=== PATIENT | male | born 2005 | race African-American/Black ===

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

== ENCOUNTER 2024-06-12 14:26 | Observation (INO) | payer MEDICAID, SELFPAY ==
[2024-06-12] VITALS (22 sets, daily range): BP systolic 111–149; BP diastolic 51–73; PULSE 56–99; RESP 12–21; TEMP 36.9–37.1; O2SAT 96–100; BMI 25.5; BMI 23.0
--- NOTE | 2024-06-12 15:30 | ED_ITS ---
Discharge Plan Disposition Patient Disposition: Admitted Chief Complaint: Hyper/Hypoglycemia Prescriptions Prescriptions: No Action Tresiba FlexTouch U-100 100 unit/mL (3 mL) insulin pen 36 unit SQ DAILY Rx Instructions: FOR INSULIN PUMP MALFUNCTION insulin lispro 100 unit/mL insulin pen 0 unit SQ DIRECTED Rx Instructions: PER SLIDING SCALE Referrals Follow up/Referrals: Keiko Munroe PA [Primary Care Provider] - See instructions Clinical Impressions Clinical Impression: DKA (diabetic ketoacidosis) Instructions Patient Instructions: DI for Hyperglycemia -- Adult Print Language Print Language: Greek Discharge ED Provider: Ramana Craig General Adult HPI General Chief complaint: Hyper/Hypoglycemia Stated complaint: high glucose Time Seen by Provider: 06/12/24 14:58 Mode of Arrival: Ambulatory Source of Information: Patient Limitations: No Limitations Description of Symptoms (Recalled from ER Triage Doc. by RN): c/o high glucose in the 400s in his family doctor office, pt reports that he was seeing the pcp for vomiting, he was exposed by a friend who had the stomach bug, states his went home after the pcp office visit and took 15 units of his short acting insulin prior to arrival. History of Present Illness HPI narrative: Patient is a 19-year-old with past medical history of type 1 insulin-dependent diabetes presents emerged part for elevated sugar. Patient has been vomiting over the last 24 hours, is still making urine and he had positive sick contact with a friend that has a stomach bug . He took 16 units of his insulin he went to his PCP where his sugar was in the 500s shortly after administration of set insulin they referred him here for possible DKA rule out. Really no significant abdominal pain. No other acute complaints at this time. Related Data Home Medications ?Medication ?Instructions ?Recorded ?Confirmed insulin lispro 100 unit/mL 0 unit SQ DIRECTED 08/13/19 06/12/24 subcutaneous pen insulin degludec 100 unit/mL (3 36 unit SQ DAILY 07/10/20 06/12/24 mL) subcutaneous pen (Tresiba FlexTouch U-100 insulin) Allergies Allergy/AdvReac Type Severity Reaction Status Date / Time No Known Allergies Allergy Verified 06/12/24 13:42 [facility] Disclaimer: The information contained in this section may have been updated after the patient was seen, as this information can be updated by other users. Medical History Type 1 diabetes Social History Smoking Status: Never smoker alcohol intake: never substance use type: denies use current occupational status: student Travel in the last 8 weeks: None Have you lived/traveled outside [place] in past 30 days?: No Contact w/someone who lives/traveled outside US past 30 days?: No Exposure to someone with infectious disease in past 14 days?: No Do you have a fever (greater than 100.4 F or 38 C)?: No Have you tested positive for COVID-19: No Exposed to someone with COVID-19 in past 14 days?: No Do you have a sore throat?: No Do you have a cough?: No Do you have any weakness?: No Do you have any diarrhea?: No Are you experiencing any unusual bleeding?: No Do you have any muscle aches/pain?: No Do you have any abdominal pain?: No Are you experiencing loss of taste or smell?: No Other Medical History Have you received the Flu Vaccine for this season: No Have you received the Pneumonia Vaccine: No ROS Obtained: Yes Systems reviewed as appropriate & no additional complaints except as documented Physical Exam General General appearance: alert and in no apparent distress Head Head exam: atraumatic and normocephalic Eye Eye exam: Present PERRL ENT ENT exam: Present mucous membranes moist Neck Neck exam: Present normal inspection Chest Chest inspection: Present normal inspection and symmetric chest wall rise Respiratory Respiratory exam: Present normal lung sounds bilaterally; Absent respiratory distress Cardiovascular Cardiovascular exam: Present regular rate and normal rhythm Abdominal Exam Abdominal exam: Present soft; Absent tenderness, guarding or rebound Extremities Exam Extremities exam: Present normal inspection Neurological Exam Neurological exam: Present alert Psychiatric Psychiatric exam: Present normal affect Skin Skin exam: Present warm and dry Medical Decision Making Medical Records Screening: Per USPSTF and CDC recommendations, given the prevalence of disease in our region, it is our hospital?s policy to screen for HIV and viral Hepatitis for all patients aged 18 and over and those with ongoing risk factors. Wood Inquiry Pt receiving controlled substance: No Vital Signs: 06/12/24 14:27 Temperature 98.8 F Temperature Source Oral Pulse Rate [Left Radial] 99 H Respiratory Rate 18 Blood Pressure [Right Arm] 149/68 H Blood Pressure Mean [Right Arm] 95 02 Sat by Pulse Oximetry 100 Oxygen Delivery Method Room Air Lab Data Lab Results 06/12/24 14:48: WBC 12.4, RBC 6.06, Hgb 16.7, Hct 54.4 H, MCV 89.8, MCH 27.6, M CHC 30.8 L, RDW 13.1, Plt Count 366, MPV 8.7, Neut % (Auto) 81.0 H, Lymph % (Auto) 15.9, [place] % (Auto) 2.3, Eos % (Auto) 0.1, Baso % (Auto) 0.7, Neut # (Auto) 10.0 H, Lymph # (Auto) 2.0, [place] # (Auto) 0.3, Eos # (Auto) 0.0, Baso # (Auto) 0.1, Sodium 129 L, Potassium 5.7 H, Chloride 95 L, Carbon Dioxide 9 L*, A nion [place] 30.7 H, BUN 21 H, Creatinine 1.20, Estimated Creat Clear 106, Estimated GFR 77, Est GFR ( Amer) 93, Glucose 573 H*, Calcium 10.6 H, Phosphorus 5.9 H, Magnesium 2.1, Total Bilirubin 1.8 H, AST 62 H, ALT 58, Alkaline Phosphatase 136 H, Total Protein 9.7 H, Albumin 5.6 H, Globulin 4.1 H, Albumin/Globulin Ratio 1.4, Lipase 120, Acetone Level Small 06/12/24 15:27: VBG pH 7.13 L, VBG pCO2 41.7, VBG pO2 37.5, VBG HCO3 13.7 L, VBG Total CO2 15.0 L, VBG O2 Saturation 58.7, VBG Base Excess -15.4 L, VBG Lactic Acid 3.9 H 06/12/24 14:48 06/12/24 14:48 Orders (Tests/Meds): ED MEDICATIONS Generic Name Dose Route Start Last Admin Trade Name Freq PRN Reason Stop Dose Admin Dextrose 50 ml 06/12/24 16:49 Dextrose 50% 50ml Syringe (Crash Cart) IVP 07/12/24 16:48 NEEDED PRN Per Dka Protocol for FSBS </= 50 Lactated Ringer's 1,000 mls @ 999 mls/hr 06/12/24 15:57 Lactated Ringer's 1000 Ml Bag IV 06/12/24 16:57 .Q1H1M ONE Sodium Chloride 1,000 mls @ 150 mls/hr 06/12/24 18:15 Sod Chlor 0.9% 1000ml Bag IV 07/12/24 18:14 .Q6H40M ANGELINE Insulin Human Regular 100 unit 101 mls @ 7.07 mls/hr 06/12/24 16:15 06/12/24 16:43 / Sodium Chloride IV 07/12/24 16:14 7 unit/hr .[id number] ANGELINE 7.07 mls/hr Administration Protocol 7 UNIT/HR Discontinued Medications Generic Name Dose Route Start Last Admin Trade Name Freq PRN Reason Stop Dose Admin Lactated Ringer's 1,000 mls @ 999 mls/hr 06/12/24 15:27 06/12/24 16:01 Lactated Ringer's 1000 Ml Bag IV 06/12/24 16:27 999 mls/hr .Q1H1M ONE Administration Ondansetron HCl 4 mg 06/12/24 15:27 06/12/24 16:01 Ondansetron 4mg/2ml Vial IV 06/12/24 15:28 4 mg ONCE ONE Administration ORDERS Category Date Time Status Nutrition Consult [CONS] Routine Cons 06/12/24 16:50 Active Acetone, Serum (Rapid) Stat Lab 06/12/24 14:48 Completed Basic Metabolic Panel Q4 Lab 06/12/24 17:00 Ordered Basic Metabolic Panel Q4 Lab 06/12/24 21:00 Ordered Basic Metabolic Panel Q4 Lab 06/13/24 01:00 Ordered Basic Metabolic Panel Q4 Lab 06/13/24 05:00 Ordered Basic Metabolic Panel Q4 Lab 06/13/24 09:00 Ordered Basic Metabolic Panel Q4 Lab 06/13/24 13:00 Ordered CBC w/Auto Diff [Complete Blood Count Auto Diff] Stat Lab 06/12/24 14:48 Completed CMP [Comprehensive Metabolic Panel] Stat Lab 06/12/24 14:48 Completed Complete Blood Count Auto Diff AMLAB Lab 06/13/24 06:00 Ordered Comprehensive Metabolic Panel AMLAB Lab 06/13/24 06:00 Ordered HIV (1&2) Antibody Rapid Stat Lab 06/12/24 14:48 Received Hemoglobin A1C Stat Lab 06/12/24 14:48 Received Hep C Ab with Reflex to RNA Stat Lab 06/12/24 14:48 Received Lipase Stat Lab 06/12/24 14:48 Completed Magnesium AMLAB Lab 06/13/24 06:00 Ordered Magnesium Q4H Lab 06/12/24 17:00 Ordered Magnesium Q4H Lab 06/12/24 21:00 Ordered Magnesium Q4H Lab 06/13/24 01:00 Ordered Magnesium Q4H Lab 06/13/24 05:00 Ordered Magnesium Q4H Lab 06/13/24 09:00 Ordered Magnesium Q4H Lab 06/13/24 13:00 Ordered Magnesium Stat Lab 06/12/24 14:48 Completed Phosphorous Q4H Lab 06/12/24 17:00 Ordered Phosphorous Q4H Lab 06/12/24 21:00 Ordered Phosphorous Q4H Lab 06/13/24 01:00 Ordered Phosphorous Q4H Lab 06/13/24 05:00 Ordered Phosphorous Q4H Lab 06/13/24 09:00 Ordered Phosphorous Q4H Lab 06/13/24 13:00 Ordered Phosphorous Stat Lab 06/12/24 14:48 Completed UA [Urinalysis and Microscopic] Stat Lab 06/12/24 15:27 Ordered VBG [Venous Blood Gas] Stat RT 06/12/24 15:27 Completed ECG Request Stat Y 06/12/24 16:12 Ordered Medical Decision Narrative: In summary patient is a 19-year-old male with past medical history described above who presents emergency department for evaluation of hyperglycemia in the setting of type 1 diabetes and vomiting. Patient is hemodynamically stable nontoxic-appearing upon arrival, afebrile. Differential diagnosis includes reactive hyperglycemia in the setting of illness, pancreatitis, DKA, among others. CT imaging was considered however given has a nonfocal abdominal exam will be deferred. Workup we conducted with hematologic labs, urinalysis. Initial inventions include crystalloid bolus, Zofran. Initial workup reviewed by me, no significant leukocytosis, there is significant acidosis with pseudohyponatremia, mildly elevated potassium and elevated ketones consistent with diabetic ketoacidosis. Patient be given a total of 2 L crystalloid resuscitation will be started on an insulin drip. Of note patient took 15 units prior to arrival so he will have to be closely monitored. The case was discussed with Dr. Todd regarding management he will meet the patient to service for continued evaluation at this time. Critical Care Critical Care Time Critical Care Time: Yes Attestation: On 06/12/24, the high probability of a clinically significant, sudden or life threatening deterioration of the following system(s) required my full and direct attention, intervention and personal management. The time I documented below is in addition to time spent performing reported procedures but includes the following listed in this critical care notation. Total Time Total Critical Care Time: 45
[2024-06-12 15:41] LABS: Chloride 95 mmol/L (98-107)
[2024-06-12 15:42] LABS: Albumin Level 5.6 g/dl (3.5-5.0); Potassium 5.7 mmoL/L (3.5-5.1); Sodium 129 mmol/L (136-145)
[2024-06-12 15:44] LABS: Anion Gap 30.7 mEq/L (5-15); Blood Urea Nitrogen 21 mg/dl (9-20); Creatinine Clearance Estimated 106 mL/min (50-200); Estimated Glomerular Filt Rate 77 ml/min (>60); GFR (African American) 93 ML/MIN (>60)
[2024-06-12 15:45] LABS: Alanine Aminotransferase 58 U/L (12-78); Albumin/Globulin Ratio 1.4 (1.1-1.8); Alkaline Phosphatase 136 U/L (38-126); Aspartate Amino Transferase 62 U/L (17-59); Bilirubin,Total 1.8 mg/dl (0.2-1.3); Calcium 10.6 mg/dl (8.4-10.2); Globulin 4.1 g/dL (1.3-3.2); Lipase 120 U/L (23-300); Total Protein,Serum 9.7 g/dl (6.3-8.2)
[2024-06-12 15:46] LABS: Basophils # 0.1 K/mm3 (0-0.2); Basophils % 0.7 % (0.1-2.0); Carbon Dioxide 9 mmol/L (22.0-30.0); Eosinophils % 0.1 % (0.1-12.0); Hematocrit 54.4 % (42.0-52.0); Hemoglobin 16.7 g/dL (14.1-18.0); Lymphocytes % 15.9 % (10-50); Mean Corpuscular HGB Conc 30.8 g/dL (31.8-35.4); Mean Corpuscular Hemoglobin 27.6 pg (27.0-31.2); Mean Corpuscular Volume 89.8 fl (80-94); Mean Platelet Volume 8.7 fl (7.4-10.4); Monocytes # 0.3 K/mm3 (0.1-1.0); Monocytes % 2.3 % (1.7-9.3); Platelet Count 366 K/mm3 (142-424); Red Blood Count 6.06 M/mm3 (4.60-6.20); Red Cell Distribution Width 13.1 % (11.5-17.5); White Blood Count 12.4 K/mm3 (4.5-13.0)
[2024-06-12 15:55] LABS: Glucose 573 mg/dl (74-100)
--- NOTE | 2024-06-12 15:57 | PC.NURSE ---
aware of glucose of 573
[2024-06-12] MEDS: ONDANSETRON 4MG/2ML VIAL 4 MG IV (16:01)
[2024-06-12] MEDS: LACTATED RINGERS 1000ML 1,000 ML 999 ML IV ×2 (16:01→16:55)
[2024-06-12 16:04] LABS: VBG Base Excess -15.4 mmol/L (-2.4-2.3); VBG HCO3 13.7 mmol/L (23-30); VBG Oxygen Saturation 58.7 % (50-70); VBG PCO2 41.7 mmol/L (35-51); VBG PO2 37.5 mmol/L (28-40)
[2024-06-12 16:07] LABS: Lactate Venous 3.9 mmol/L (0.4-2.0); VBG PH 7.13 mmol/L (7.31-7.41)
[2024-06-12 16:11] LABS: Acetone, Serum (Rapid) Small (None Detect)
--- NOTE | 2024-06-12 16:22 | HMH.PHAINT1 ---
Pharmacy Intervention Comments: MEDICATION RECONCILIATION COMPLETED ON PATIENT USING EXTERNAL FILL HISTORY FROM PHARMACY. -LALA NUNN, LYND
[2024-06-12 16:32] LABS: Phosphorous 5.9 mg/dl (2.5-4.5)
[2024-06-12 16:33] LABS: Magnesium 2.1 mg/dl (1.6-2.3)
[2024-06-12] MEDS: INSULIN REGULAR, HUMAN 100 UNIT in 0.9 % SODIUM CHLORIDE 100 ML 7.07 UNIT IV (16:43)
--- NOTE | 2024-06-12 16:51 | EXP.HP ---
History of Present Illness *Admission Date: 06/12/24 *Reason for visit:: nausea and vomiting [facility] Disclaimer: The information contained in this section may have been updated after the patient was seen, as this information can be updated by other users. Medical History Type 1 diabetes Social History Smoking Status: Never smoker alcohol intake: never substance use type: denies use current occupational status: student Travel in the last 8 weeks: None Have you lived/traveled outside US in past 30 days?: No Contact w/someone who lives/traveled outside US past 30 days?: No Exposure to someone with infectious disease in past 14 days?: No Do you have a fever (greater than 100.4 F or 38 C)?: No Have you tested positive for COVID-19: No Exposed to someone with COVID-19 in past 14 days?: No Do you have a sore throat?: No Do you have a cough?: No Do you have any weakness?: No Do you have any diarrhea?: No Are you experiencing any unusual bleeding?: No Do you have any muscle aches/pain?: No Do you have any abdominal pain?: No Are you experiencing loss of taste or smell?: No Other Medical History Have you received the Flu Vaccine for this season: No Have you received the Pneumonia Vaccine: No Review of Systems Review of Systems Review of systems (narrative): 14 point review of systems performed, pertinent positives and negatives as per HPI Meds Home Medications and Allergies Home Medications ?Medication ?Instructions ?Recorded ?Confirmed ?Type insulin lispro 100 unit/mL 0 unit SQ DIRECTED 08/13/19 06/12/24 History subcutaneous pen insulin degludec 100 unit/mL (3 36 unit SQ DAILY 07/10/20 06/12/24 History mL) subcutaneous pen (Tresiba FlexTouch U-100 insulin) New Prescriptions to Start Prescriptions: Allergies Allergy/AdvReac Type Severity Reaction Status Date / Time No Known Allergies Allergy Verified 06/12/24 13:42 Exam Data for Last 24 hours Vital signs and Labs for Last 24 Hours: Temp Pulse Resp BP Pulse Ox O2 Del Method 98.8 F 99 H 18 149/68 H 100 Room Air 06/12/24 14:27 06/12/24 14:27 06/12/24 14:27 06/12/24 14:27 06/12/24 14:27 06/12/24 14:27 Laboratory Results - last 24 hr 06/12/24 14:48: WBC 12.4, RBC 6.06, Hgb 16.7, Hct 54.4 H, MCV 89.8, MCH 27.6, MCHC 30.8 L, RDW 13.1, Plt Count 366, MPV 8.7, Neut % (Auto) 81.0 H, Lymph % (Auto) 15.9, [place] % (Auto) 2.3, Eos % (Auto) 0.1, Baso % (Auto) 0.7, Neut # (Auto) 10.0 H, Lymph # (Auto) 2.0, [place] # (Auto) 0.3, Eos # (Auto) 0.0, Baso # (Auto) 0.1, Sodium 129 L, Potassium 5.7 H, Chloride 95 L, Carbon Dioxide 9 L*, Anion Gap 30.7 H, BUN 21 H, Creatinine 1.20, Estimated Creat Clear 106, Estimated GFR 77, Est GFR ( Amer) 93, Glucose 573 H*, Calcium 10.6 H, Phosphorus 5.9 H, Magnesium 2.1, Total Bilirubin 1.8 H, AST 62 H, ALT 58, Alkaline Phosphatase 136 H, Total Protein 9.7 H, Albumin 5.6 H, Globulin 4.1 H, Albumin/Globulin Ratio 1.4, Lipase 120, Acetone Level Small 06/12/24 15:27: VBG pH 7.13 L, VBG pCO2 41.7, VBG pO2 37.5, VBG HCO3 13.7 L, VBG Total CO2 15.0 L, VBG O2 Saturation 58.7, VBG Base Excess -15.4 L, VBG Lactic Acid 3.9 H I & O for Last 24 hours: Intake & Output 06/09/24 06/10/24 06/11/24 06/12/24 23:59 23:59 23:59 23:59 Weight 76.204 kg Constitutional Constitutional: mild distress, average body habitus and cooperative *Routine HEENT Exam Head: Present normocephalic Eye: Present EOMI and PERRL ENT: Present mucous membranes moist *Routine Neck Exam Neck: Present supple; Absent lymphadenopathy *Routine Respiratory Exam Respiratory: Present CTA bilaterally *Routine Cardiovascular Exam Cardiovascular: Present tachycardia *Routine Abdominal Exam Abdominal: Present soft and normoactive bowel sounds; Absent tenderness *Routine Rectal Exam Rectal:: deferred *Routine Genitalia Exam Genitalia:: deferred *Routine Extremities Exam Extremities: Absent cyanosis, clubbing or edema *Routine Skin Exam Skin: Present warm; Absent rash *Routine Neurological Exam Neurological: Present alert and oriented X3 Assessment and Plan *Assessment and plan (1) DKA (diabetic ketoacidosis): Status: Acute Category: Medical Code(s): E11.10 - Type 2 diabetes mellitus with ketoacidosis without coma (2) High anion gap metabolic acidosis: Status: Acute Category: Medical Code(s): E87.29 - Other acidosis (3) Type 1 diabetes: Status: Chronic Category: Medical Code(s): E10.9 - Type 1 diabetes mellitus without complications (4) Nausea and vomiting: Status: Acute Category: Medical Code(s): R11.2 - Nausea with vomiting, unspecified Plan Full code
--- NOTE | 2024-06-12 17:17 | PC.NURSE ---
ROUNDED ON THE PATIENT AT THIS TIME. PT GIVEN A PILLOW. NO OTHER COMPLAINTS AT THIS TIME.
[2024-06-12 17:26] LABS: Chloride 98 mmol/L (98-107); Potassium 5.3 mmoL/L (3.5-5.1); Sodium 131 mmol/L (136-145)
[2024-06-12 17:29] LABS: Anion Gap 25.3 mEq/L (5-15); Blood Urea Nitrogen 20 mg/dl (9-20); Calcium 10.4 mg/dl (8.4-10.2); Carbon Dioxide 13 mmol/L (22.0-30.0); Creatinine Clearance Estimated 115 mL/min (50-200); Estimated Glomerular Filt Rate 85 ml/min (>60); GFR (African American) 103 ML/MIN (>60); Glucose 304 mg/dl (74-100); Phosphorous 4.6 mg/dl (2.5-4.5)
[2024-06-12 17:30] LABS: Magnesium 2.3 mg/dl (1.6-2.3)
[2024-06-12 17:46] LABS: Hemoglobin A1C 9.7 % (4.0-6.0)
--- NOTE | 2024-06-12 17:53 | PC.NURSE ---
report called to Sherry DISLA
--- NOTE | 2024-06-12 18:01 | PC.NURSE ---
pt asleep in bed no needs at this time
--- NOTE | 2024-06-12 18:42 | PC.NURSE ---
pt gone to icu area at this time
--- NOTE | 2024-06-12 19:17 | PC.NURSE ---
1845 pt arrived to unit with er staff. pt a/o x 4, nad noted. lungs clear throughout. bowel sounds are active in all quads. pt unsure of last bm.
[2024-06-12] MEDS: D5W/0.9% NaCl w/20mEq KCL 1,000 ML 75 ML IV (19:36)
[2024-06-12 20:06] LABS: Reflex Lactic Add Lactic Reflex
[2024-06-12] MEDS: Dextrose 5 % and 0.9 % NaCl 1,000 ML 125 ML IV (20:50)
[2024-06-12 21:15] LABS: Chloride 103 mmol/L (98-107); Potassium 4.4 mmoL/L (3.5-5.1); Sodium 131 mmol/L (136-145)
[2024-06-12 21:18] LABS: Anion Gap 14.4 mEq/L (5-15); Blood Urea Nitrogen 18 mg/dl (9-20); Calcium 9.9 mg/dl (8.4-10.2); Carbon Dioxide 18 mmol/L (22.0-30.0); Creatinine Clearance Estimated 127 mL/min (50-200); Estimated Glomerular Filt Rate 108 ml/min (>60); GFR (African American) 130 ML/MIN (>60); Glucose 103 mg/dl (74-100); Lactic Acid Follow Up (RFLX 1) 1.2 mmol/L (0.7-2.1); Phosphorous 3.8 mg/dl (2.5-4.5)
[2024-06-12 21:19] LABS: Magnesium 2.1 mg/dl (1.6-2.3)
--- NOTE | 2024-06-12 21:31 | EXP.EVENT.NO ---
Patient's anion gap closed at 9:30 PM tonight. Will give Tresiba 30 units subcu now, allow patient to eat diabetic diet, start sliding scale insulin ACHS, and continue insulin drip for an additional 2 hours before discontinuation. Full H&P to follow when time permits.
--- NOTE | 2024-06-12 21:32 | P.HP_ITS ---
History of Present Illness *Admission Date: 06/12/24 *Reason for visit:: Nausea, vomiting, weakness, vertigo, malaise *History of present illness: Really nice 19-year-old patient with past medical history of type 1 diabetes. Patient presents with nausea, vomiting, weakness, vertigo starting at 9 AM this morning. Patient states that he was walking around 9 AM this morning, when he noticed nausea, vomiting, weakness, vertigo symptoms. Patient also vomited and of experienced abdominal pain with vomiting. Patient describes abdominal pain as 9/10, sharp, grabbing, lasting 30 seconds, and better after patient vomited. Patient admits to having friends with similar stomach bug type symptoms. Patient brought to [facility] via mother's vehicle today. Patient had UA done at clinic showing possible dehydration, uncontrolled diabetes. Patient recommended to visit emergency room, and mother brought patient immediately to emergency room for evaluation. Denies fevers, chills, diarrhea, constipation, chest pain, headache, blurry vision. States he usually controls h is diabetes with a Dexcom. Admits to being diagnosed with diabetes since age 2, but denies any previous hospitalizations for DKA. States he takes Tresiba 30 units every afternoon, and carb counts during the day then takes appropriate short acting insulin. Patient presents to hospital with lactic acid 3.9, pH 7.13, serum bicarb 9, anion gap 30.7, glucose 573, hemoglobin A1c 9.7, total bili 1.8, AST 62, alk phos 136. Patient rapidly diagnosed with DKA, and admitted to ICU for insulin gtt., and fluid administration. [facility] Disclaimer: The information contained in this section may have been updated after the patient was seen, as this information can be updated by other users. Medical History Type 1 diabetes Social History (Updated 06/12/24 @ 20:00 by Diandra Bailey RN) Smoking Status: Never smoker alcohol intake: never substance use type: denies use current occupational status: student Travel in the last 8 weeks: None Have you lived/traveled outside US in past 30 days?: No Contact w/someone who lives/traveled outside US past 30 days?: No Exposure to someone with infectious disease in past 14 days?: No Do you have a fever (greater than 100.4 F or 38 C)?: No Have you tested positive for COVID-19: No Exposed to someone with COVID-19 in past 14 days?: No Do you have a sore throat?: No Do you have a cough?: No Do you have any weakness?: No Are you experiencing any nausea/vomitting?: No Do you have any diarrhea?: No Are you experiencing any unusual bleeding?: No Do you have any muscle aches/pain?: No Do you have any abdominal pain?: No Are you experiencing loss of taste or smell?: No Other Medical History Have you received the Flu Vaccine for this season: No Have you received the Pneumonia Vaccine: No Review of Systems Review of Systems Review of systems:: pertinent systems reviewed and negative unless documented below Constitutional Constitutional: Reports system reviewed and no additional complaints, except as documented Meds Home Medications and Allergies Home Medications ?Medication ?Instructions ?Recorded ?Confirmed ?Type insulin lispro 100 unit/mL 0 unit SQ DIRECTED 08/13/19 06/12/24 History subcutaneous pen insulin degludec 100 unit/mL (3 30 unit SQ DAILY 07/10/20 06/12/24 History mL) subcutaneous pen (Tresiba FlexTouch U-100 insulin) New Prescriptions to Start Prescriptions: Allergies Allergy/AdvReac Type Severity Reaction Status Date / Time No Known Allergies Allergy Verified 06/12/24 13:42 Exam Data for Last 24 hours Vital signs and Labs for Last 24 Hours: Temp Pulse Resp BP Pulse Ox O2 Del Method 98.4 F 82 15 132/59 L 99 Room Air 06/12/24 20:00 06/12/24 21:15 06/12/24 21:15 06/12/24 21:00 06/12/24 21:15 06/12/24 20:00 Laboratory Results - last 24 hr 06/12/24 14:48: WBC 12.4, RBC 6.06, Hgb 16.7, Hct 54.4 H, MCV 89.8, MCH 27.6, MCHC 30.8 L, RDW 13.1, Plt Count 366, MPV 8.7, Neut % (Auto) 81.0 H, Lymph % (Auto) 15.9, [place] % (Auto) 2.3, Eos % (Auto) 0.1, Baso % (Auto) 0.7, Neut # (Auto) 10.0 H, Lymph # (Auto) 2.0, [place] # (Auto) 0.3, Eos # (Auto) 0.0, Baso # (Auto) 0.1, Sodium 129 L, Potassium 5.7 H, Chloride 95 L, Carbon Dioxide 9 L*, Anion Gap 30.7 H, BUN 21 H, Creatinine 1.20, Estimated Creat Clear 106, Estimated GFR 77, Est GFR ( Amer) 93, Glucose 573 H*, Hemoglobin A1c 9.7 H, Calcium 10.6 H, Phosphorus 5.9 H, Magnesium 2.1, Total Bilirubin 1.8 H, AST 62 H, ALT 58, Alkaline Phosphatase 136 H, Total Protein 9.7 H, Albumin 5.6 H, Globulin 4.1 H, Albumin/Globulin Ratio 1.4, Lipase 120, Acetone Level Small 06/12/24 15:27: VBG pH 7.13 L, VBG pCO2 41.7, VBG pO2 37.5, VBG HCO3 13.7 L, VBG Total CO2 15.0 L, VBG O2 Saturation 58.7, VBG Base Excess -15.4 L, VBG Lactic Acid 3.9 H 06/12/24 17:13: Sodium 131 L, Potassium 5.3 H, Chloride 98, Carbon Dioxide 13 L, Anion Gap 25.3 H, BUN 20, Creatinine 1.10, Estimated Creat Clear 115, Estimated GFR 85, Est GFR ( Amer) 103, Glucose 304 H D, Calcium 10.4 H, Phosphorus 4.6 H, Magnesium 2.3 06/12/24 20:34: Sodium 131 L, Potassium 4.4, Chloride 103, Carbon Dioxide 18 L, Anion Gap 14.4, BUN 18, Creatinine 0.90, Estimated Creat Clear 127, Estimated GFR 108, Est GFR ( Amer) 130 D, Glucose 103 H D, Lactate 1.2, Calcium 9.9, Phosphorus 3.8, Magnesium 2.1 I & O for Last 24 hours: Intake & Output 06/09/24 06/10/24 06/11/24 06/12/24 23:59 23:59 23:59 23:59 Intake Total .416 / .416 Balance .416 / .416 Weight 68.691 kg Constitutional Constitutional: mild distress, thin and cooperative *Routine HEENT Exam Head: Present normocephalic Eye: Present EOMI ENT: Present mucous membranes moist *Routine Neck Exam Neck: Present supple and full ROM *Routine Respiratory Exam Respiratory: Present accessory muscle use and CTA bilaterally *Routine Cardiovascular Exam Cardiovascular: Present RRR, Normal S1 and Normal S2 *Routine Abdominal Exam Abdominal: Present soft and normoactive bowel sounds *Routine Rectal Exam Rectal:: deferred *Routine Genitalia Exam Genitalia:: deferred *Routine Extremities Exam Extremities: Present full ROM and normal capillary refill *Routine Skin Exam Skin: Present intact *Routine Neurological Exam Neurological: Present alert, oriented X3 and CN II-XII intact Assessment and Plan *Assessment and plan (1) DKA (diabetic ketoacidosis): Status: Acute Category: Medical Code(s): E11.10 - Type 2 diabetes mellitus with ketoacidosis without coma (2) Nausea and vomiting: Status: Acute Category: Medical Code(s): R11.2 - Nausea with vomiting, unspecified (3) High anion gap metabolic acidosis: Status: Acute Category: Medical Code(s): E87.29 - Other acidosis (4) Type 1 diabetes: Status: Chronic Category: Medical Code(s): E10.9 - Type 1 diabetes mellitus without complications Plan Really nice 19-year-old patient with past medical history of type 1 diabetes. Patient presents with nausea, vomiting, weakness, vertigo starting at 9 AM this morning. Patient presents to hospital with lactic acid 3.9, pH 7.13, serum bicarb 9, anion gap 30.7, glucose 573, hemoglobin A1c 9.7, total bili 1.8, AST 62, alk phos 136. Patient rapidly diagnosed with DKA, and admitted to ICU for insulin gtt., and fluid administration. Problems as listed below: ?Labs/imaging reviewed at time of admission: ?WBC 12.4, Hg 16.7, hematocrit 54.4, platelets 366, NA 129, K5.7, CL 95, bicarb 9, BUN 21, CR 1.2, anion gap 30.7, glucose 573, magnesium 2.3, phosphorus 4.6. ?lactic acid 3.9, pH 7.13, serum bicarb 13, anion gap 25.2, glucose 304, hemoglobin A1c 9.7, total bili 1.8, AST 62, alk phos 136. I will recheck CMP, CBC, mag in AM. DKA likely secondary to gastroenteritis: ?Admitted to ICU on insulin gtt., 125 cc/h normal saline then transition to D5 normal saline when blood glucose less than 250. Patient's anion gap closed around . Patient restarted on Tresiba 30 units subcu overnight, with insulin drip and fluids continued for an additional 2 hours then discontinued. Patient's diet advanced to diabetic after initiation of Tresiba subcu overnight. Unfortunately, by 2am 06/13 patient's anion gap increased from 14 to 17. I restarted patient on insulin drip and D5 normal saline 125 cc/h. I also downgraded patient's diet to clears diabetic appropriate. Confident patient's DKA should resolve within next 12 hours. Patient originally had anion gap 30.7 at time of hospital presentation. ?Correct electrolytes as needed. Patient will require close endocrine follow-up as outpatient to prevent further DKA episodes. This is patient's first DKA episode in his life per patient and patient's mother report. ?Will perform infectious workup including respiratory panel and procalcitonin during this hospitalization. Suspect patient's elevation in white blood count reactive and will decrease with treatment of DKA. ?Believe patient likely suffering from gastroenteritis causing DKA. No signs of diarrhea so no reason to order diarrhea panel. If patient spikes fever, or has worsening leukocytosis, low threshold to start empirical bacterial gastroenteri tis related antibiotics. MDM [place]: High. Patient's DKA poses risk to life and bodily function. Data: High. See above. Patient's mother acted as an independent historian during my interview with patient today. I spoke with the emergency room provider today, and we agreed that patient required hospitalization for anion gap above 30, pH 7.13 for appropriate management of DKA. Risk: High. Patient requiring IV fluids as noted above. Patient also requiring IV insulin drip ranging from 0.1 to 5 units/h for adequate management of diabetic ketoacidosis. I spent 40 minutes of critical care time on this patient 06/12/2024.
[2024-06-12] MEDS: INSULIN DEGLUDEC 100 UNIT/ML 30 EACH SUBCUT (21:33)
--- NOTE | 2024-06-12 21:39 | PC.NURSE ---
Gap closed, Dr. Guzman notified. Instructed to keep drip on for two hours after administration of home dose of treseba.
--- NOTE | 2024-06-12 23:45 | PC.NURSE ---
Insulin drip stopped at 1130, 2 hours after administration of long acting insulin per dr. dorado
[2024-06-13] VITALS (43 sets, daily range): BP systolic 106–129; BP diastolic 45–69; PULSE 52–88; RESP 0–21; TEMP 36.6–36.9; O2SAT 96–100; BMI 23.3
[2024-06-13 01:50] LABS: Anion Gap 17.7 mEq/L (5-15); Blood Urea Nitrogen 16 mg/dl (9-20); Calcium 9.1 mg/dl (8.4-10.2); Carbon Dioxide 19 mmol/L (22.0-30.0); Chloride 101 mmol/L (98-107); Creatinine Clearance Estimated 114 mL/min (50-200); Estimated Glomerular Filt Rate 95 ml/min (>60); GFR (African American) 115 ML/MIN (>60); Glucose 295 mg/dl (74-100); Magnesium 1.7 mg/dl (1.6-2.3); Phosphorous 4.7 mg/dl (2.5-4.5); Potassium 4.7 mmoL/L (3.5-5.1); Sodium 133 mmol/L (136-145)
[2024-06-13] MEDS: 0.9% NaCl w/20mEq KCL 1,000 ML 150 ML IV (04:09)
[2024-06-13 04:30] LABS: Microscopic, Urine URINE MICROSCOPIC (MICROSCOPIC)
[2024-06-13 04:36] LABS: Appearance,Urine CLEAR (Clear); Blood, Urine Negative (Negative); Color,Urine YELLOW (Yellow); Glucose,Urine (UA) 2+ (Negative); Ketones,Urine 3+ (Negative); Leukocyte Esterase,Urine Negative (Negative); Nitrate,Urine Negative (Negative); Protein,Urine Negative (Negative); Specific Gravity, Urine >= 1.030 (1.005-1.030); Urobilinogen,Urine 0.2 EU/dl (0.2)
[2024-06-13 04:39] LABS: Bilirubin,Urine Negative (Negative)
[2024-06-13 04:46] LABS: Bacteria,Urine Trace /lpf; Squamous Epithelial Cell,Urine Occasional #/hpf (0-5)
--- NOTE | 2024-06-13 05:25 | PC.NURSE ---
Dr. Guzman notified of anion gap increasing and instructed to restart Insulin drip at previous rate as well as d5 fluids. VS stable and patient remained on room air.
[2024-06-13 05:32] LABS: Adenovirus,PCR Not Detected (NotDetected); Bordetella Pertussis Not Detected (NotDetected); Chlamydophila Pneumoniae, PCR Not Detected (NotDetected); Coronavirus 19, PCR Not Detected (NotDetected); Coronavirus 229E Not Detected (NotDetected); Coronavirus NL63 Not Detected (NotDetected); Coronavirus OC43 Not Detected (NotDetected); Coronovirus HKU1,PCR Not Detected (NotDetected); Human Metapneumovirus Not Detected (NotDetected); Influenza A, PCR Not Detected (NotDetected); Influenza AH1, 2009 Not Detected (NotDetected); Influenza AH1, PCR Not Detected (NotDetected); Influenza AH3,PCR Not Detected (NotDetected); Influenza B, PCR Not Detected (NotDetected); Mycoplasma Pneumoniae, PCR Not Detected (NotDetected); Parainfluenza 1, PCR Not Detected (NotDetected); Parainfluenza 2, PCR Not Detected (NotDetected); Parainfluenza 3, PCR Not Detected (NotDetected); Parainfluenza 4, PCR Not Detected (NotDetected); Respiratory Syncytial Virus Not Detected (NotDetected); Rhinovirus/Enterovirus Not Detected (NotDetected)
[2024-06-13 05:54] LABS: Basophils # 0.1 K/mm3 (0-0.2); Basophils % 0.8 % (0.1-2.0); Eosinophils % 0.4 % (0.1-12.0); Hematocrit 43.1 % (42.0-52.0); Lymphocytes # 3.2 K/mm3 (0.7-4.5); Lymphocytes % 28.4 % (10-50); Mean Corpuscular HGB Conc 32.4 g/dL (31.8-35.4); Mean Corpuscular Hemoglobin 27.6 pg (27.0-31.2); Mean Corpuscular Volume 85.3 fl (80-94); Monocytes # 0.7 K/mm3 (0.1-1.0); Monocytes % 6.7 % (1.7-9.3); Neutrophils # 7.1 K/mm3 (1.8-7.8); Neutrophils % 63.7 % (37.0-80.0); Platelet Count 333 K/mm3 (142-424); Red Blood Count 5.06 M/mm3 (4.60-6.20); Red Cell Distribution Width 13.6 % (11.5-17.5); White Blood Count 11.1 K/mm3 (4.5-13.0)
[2024-06-13 06:00] LABS: Chloride 105 mmol/L (98-107)
[2024-06-13 06:01] LABS: Hemoglobin 13.9 g/dL (14.1-18.0); Potassium 4.4 mmoL/L (3.5-5.1); Sodium 132 mmol/L (136-145)
[2024-06-13 06:04] LABS: Alanine Aminotransferase 40 U/L (12-78); Albumin/Globulin Ratio 1.5 (1.1-1.8); Alkaline Phosphatase 67 U/L (38-126); Anion Gap 12.4 mEq/L (5-15); Aspartate Amino Transferase 36 U/L (17-59); Bilirubin,Total 1.1 mg/dl (0.2-1.3); Blood Urea Nitrogen 16 mg/dl (9-20); Carbon Dioxide 19 mmol/L (22.0-30.0); Creatinine Clearance Estimated 117 mL/min (50-200); Estimated Glomerular Filt Rate 95 ml/min (>60); GFR (African American) 115 ML/MIN (>60); Globulin 2.7 g/dL (1.3-3.2); Glucose 206 mg/dl (74-100); Magnesium 1.9 mg/dl (1.6-2.3); Phosphorous 2.8 mg/dl (2.5-4.5); Total Protein,Serum 6.7 g/dl (6.3-8.2)
[2024-06-13 06:10] LABS: HCV Ab Non Reactive (Non Reactive)
[2024-06-13 07:28] LABS: POC Glucose,Bedside 163 (70-110)
[2024-06-13 07:28] LABS: POC Glucose,Bedside 103 (70-110)
[2024-06-13 07:28] LABS: POC Glucose,Bedside 167 (70-110)
[2024-06-13 07:28] LABS: POC Glucose,Bedside 165 (70-110)
[2024-06-13 07:28] LABS: POC Glucose,Bedside 265 (70-110)
[2024-06-13 07:28] LABS: POC Glucose,Bedside 282 (70-110)
[2024-06-13 07:28] LABS: POC Glucose,Bedside 195 (70-110)
[2024-06-13 07:28] LABS: POC Glucose,Bedside 131 (70-110)
[2024-06-13 07:28] LABS: POC Glucose,Bedside 93 (70-110)
[2024-06-13 07:28] LABS: POC Glucose,Bedside 314 (70-110)
[2024-06-13 07:28] LABS: POC Glucose,Bedside 95 (70-110)
[2024-06-13 07:28] LABS: POC Glucose,Bedside 211 (70-110)
[2024-06-13 09:27] LABS: Chloride 108 mmol/L (98-107); Potassium 4.4 mmoL/L (3.5-5.1); Sodium 134 mmol/L (136-145)
[2024-06-13 09:30] LABS: Anion Gap 9.4 mEq/L (5-15); Blood Urea Nitrogen 15 mg/dl (9-20); Carbon Dioxide 21 mmol/L (22.0-30.0); Creatinine Clearance Estimated 117 mL/min (50-200); Estimated Glomerular Filt Rate 95 ml/min (>60); GFR (African American) 115 ML/MIN (>60); Phosphorous 3.2 mg/dl (2.5-4.5)
[2024-06-13 09:31] LABS: Calcium 9.2 mg/dl (8.4-10.2); Glucose 152 mg/dl (74-100)
[2024-06-13 09:39] LABS: Procalcitonin 0.195 ng/mL (0.0-2.0)
[2024-06-13] MEDS: humaLOG 100 UNITS/ML 10ML VIAL (SSI) SUBCUT ×2 (10:51→15:49)
[2024-06-13 10:55] LABS: POC Glucose,Bedside 164 (70-110)
[2024-06-13 11:34] LABS: HIV Combo NEGATIVE (Negative)
--- NOTE | 2024-06-13 13:08 | DIET.NUTRFU ---
consulted for diabetic teaching, declined handouts. Verbally reviewed diet and made some suggestions of adding protein and fiber along with cinnamon to better regulate BS. Also provided contact information for outpatient if needed. Encouraged him to get his A1c under control to avoid adverse health issues secondary to DM
[2024-06-13 14:24] LABS: Anion Gap 15.6 mEq/L (5-15); Blood Urea Nitrogen 13 mg/dl (9-20); Calcium 9.4 mg/dl (8.4-10.2); Carbon Dioxide 21 mmol/L (22.0-30.0); Chloride 104 mmol/L (98-107); Creatinine Clearance Estimated 117 mL/min (50-200); Estimated Glomerular Filt Rate 95 ml/min (>60); GFR (African American) 115 ML/MIN (>60); Glucose 246 mg/dl (74-100); Magnesium 1.7 mg/dl (1.6-2.3); Phosphorous 3.1 mg/dl (2.5-4.5); Potassium 4.6 mmoL/L (3.5-5.1); Sodium 136 mmol/L (136-145)
--- NOTE | 2024-06-13 14:36 | EXP.DC.SUM ---
General Admission date:: 06/12/24 Discharge date: 06/13/24 HPI HPI HPI: Really nice 19-year-old patient with past medical history of type 1 diabetes. Patient presents with nausea, vomiting, weakness, vertigo starting at 9 AM this morning. Patient states that he was walking around 9 AM this morning, when he noticed nausea, vomiting, weakness, vertigo symptoms. Patient also vomited and of experienced abdominal pain with vomiting. Patient describes abdominal pain as 9/10, sharp, grabbing, lasting 30 seconds, and better after patient vomited. Patient admits to having friends with similar stomach bug type symptoms. Patient brought to [facility] via mother's vehicle today. Patient had UA done at clinic showing possible dehydration, uncontrolled diabetes. Patient recommended to visit emergency room, and mother brought patient immediately to emergency room for evaluation. Denies fevers, chills, diarrhea, constipation, chest pain, headache, blurry vision. States he usually controls his diabetes with a Dexcom. Admits to being diagnosed with diabetes since age 2, but denies any previous hospitalizations for DKA. States he takes Tresiba 30 units every afternoon, and carb counts during the day then takes appropriate short acting insulin. Patient presents to hospital with lactic acid 3.9, pH 7.13, serum bicarb 9, anion gap 30.7, glucose 573, hemoglobin A1c 9.7, total bili 1.8, AST 62, alk phos 136. Patient rapidly diagnosed with DKA, and admitted to ICU for insulin gtt., and fluid administration. Hospital Course Hospital Course Hospital Course: Mr. Mohamud is a 19-year-old patient with past medical history of type 1 diabetes since the age of 2. Patient presents with nausea, vomiting, weakness, vertigo starting at 9 AM this morning. Patient presents to hospital with lactic acid 3.9, pH 7.13, serum bicarb 9, anion gap 30.7, glucose 573, hemoglobin A1c 9.7, total bili 1.8, AST 62, alk phos 136. Patient rapidly diagnosed with DKA, and admitted to ICU for insulin gtt., and fluid administration. Patient's anion gap closed by morning. Was off drip for over 12 hours with stable glucose control and continued closure of gap on serial labs. Tolerating p.o. intake and basal bolus insulin. Given his clinical improvement, stable discharge home. Recommended close follow-up with his english language learner teacher at to further adjust medications. Patient appears to understand per discussion his sick day management (with some slight adjustments discussed) and carb ratio/correction factor. Stable to discharge home with mom. Problems addressed as follows: DKA likely secondary to gastroenteritis: ?Admitted to ICU on insulin gtt., 125 cc/h normal saline then transition to D5 normal saline when blood glucose less than 250. Patient's anion gap closed around . Patient restarted on Tresiba 30 units subcu overnight, with insulin drip and fluids continued for an additional 2 hours then discontinued. Patient's diet advanced to diabetic after initiation of Tresiba subcu overnight. Unfortunately, by 2am 06/13 patient's anion gap increased from 14 to 17. Was resumed on insulin drip and by morning labs at 6, gap closed again. Transitioned completely to basal bolus regimen. Tolerating p.o. intake. Gap remained closed on repeat labs in the afternoon. Patient feeling significantly better. Kidney function normal. White count normalized. Given his clinical improvement, stable to discharge home with continued basal bolus regimen. Recommend adjusting his insulin degludec to 38 units nightly. Continue home regimen of carb ratio with 1 unit to 5 g and correction factor with 1 unit to every 25 points of glucose above 125. Would benefit from discussion about pump to use in conjunction with Dexcom with his english language learner teacher. Has follow-up in July, encouraged follow-up sooner. Overall doing well. Stable on room air. No chest pain or shortness of breath. No further diarrhea or vomiting. No indication for antibiotics at discharge. Total time spent on discharge 39 minutes in counseling, documentation, chart review, and direct care with patient. Exam Data for Last 24 hours Vital signs and Labs for Last 24 Hours: Temp Pulse Resp BP Pulse Ox O2 Del Method 98.0 F 60 18 129/55 L 100 Room Air 06/13/24 12:00 06/13/24 12:00 06/13/24 12:06/13/24 12:06/13/24 12:06/13/24 12:00 Laboratory Results - last 24 hr 06/12/24 14:48: WBC 12.4, RBC 6.06, Hgb 16.7, Hct 54.4 H, MCV 89.8, MCH 27.6, MCHC 30.8 L, RDW 13.1, Plt Count 366, MPV 8.7, Neut % (Auto) 81.0 H, Lymph % (Auto) 15.9, [place] % (Auto) 2.3, Eos % (Auto) 0.1, Baso % (Auto) 0.7, Neut # (Auto) 10.0 H, Lymph # (Auto) 2.0, [place] # (Auto) 0.3, Eos # (Auto) 0.0, Baso # (Auto) 0.1, Sodium 129 L, Potassium 5.7 H, Chloride 95 L, Carbon Dioxide 9 L*, Anion Gap 30.7 H, BUN 21 H, Creatinine 1.20, Estimated Creat Clear 106, Estimated GFR 77, Est GFR ( Amer) 93, Glucose 573 H*, Hemoglobin A1c 9.7 H, Calcium 10.6 H, Phosphorus 5.9 H, Magnesium 2.1, Total Bilirubin 1.8 H, AST 62 H, ALT 58, Alkaline Phosphatase 136 H, Total Protein 9.7 H, Albumin 5.6 H, Globulin 4.1 H, Albumin/Globulin Ratio 1.4, Lipase 120, Acetone Level Small, Hepatitis C Antibody Non reactive, HIV Ag/Ab Combo Qual Negative 06/12/24 15:27: VBG pH 7.13 L, VBG pCO2 41.7, VBG pO2 37.5, VBG HCO3 13.7 L, VBG Total CO2 15.0 L, VBG O2 Saturation 58.7, VBG Base Excess -15.4 L, VBG Lactic Acid 3.9 H 06/12/24 17:13: Sodium 131 L, Potassium 5.3 H, Chloride 98, Carbon Dioxide 13 L, Anion Gap 25.3 H, BUN 20, Creatinine 1.10, Estimated Creat Clear 115, Estimated GFR 85, Est GFR ( Amer) 103, Glucose 304 H D, Calcium 10.4 H, Phosphorus 4.6 H, Magnesium 2.3 06/12/24 19:22: POC Glucose 103 06/12/24 20:05: POC Glucose 93 06/12/24 20:34: Sodium 131 L, Potassium 4.4, Chloride 103, Carbon Dioxide 18 L, Anion Gap 14.4, BUN 18, Creatinine 0.90, Estimated Creat Clear 127, Estimated GFR 108, Est GFR ( Amer) 130 D, Glucose 103 H D, Lactate 1.2, Calcium 9.9, Phosphorus 3.8, Magnesium 2.1 06/12/24 21:02: POC Glucose 95 06/12/24 22:13: POC Glucose 131 H 06/12/24 23:05: POC Glucose 163 H 06/13/24 00:06: POC Glucose 167 H 06/13/24 01:01: POC Glucose 265 H 06/13/24 01:30: Sodium 133 L, Potassium 4.7, Chloride 101, Carbon Dioxide 19 L, Anion Gap 17.7 H, BUN 16, Creatinine 1.00, Estimated Creat Clear 114, Estimated GFR 95, Est GFR ( Amer) 115, Glucose 295 H D, Calcium 9.1, Phosphorus 4.7 H, Magnesium 1.7 D 06/13/24 02:50: POC Glucose 282 H 06/13/24 03:02: Urine Color Yellow, Urine Appearance Clear, Urine pH 6.0, Ur Specific [place] >= 1.030, Urine Protein Negative, Urine Glucose (UA) 2+, Urine Ketones 3+, Urine Blood Negative, Urine Nitrate Negative, Urine Bilirubin Negative, Urine Urobilinogen 0.2, Ur Leukocyte Esterase Negative, Urine WBC None, Ur Squamous Epith Cells Occasional, Urine Bacteria Trace 06/13/24 04:00: POC Glucose 314 H* 06/13/24 05:10: Chlamy pneumoniae PCR Not detected, Adenovirus (PCR) Not detected, B. pertussis DNA (PCR) Not detected, Coronavirus OC43 (PCR) Not detected, Coronavirus HKU1 (PCR) Not detected, Coronavirus 229E (PCR) Not detected, SARS-CoV-2 (PCR) Not detected, Coronavirus NL63 (PCR) Not detected, Human Metapneumovir PCR Not detected, Influenza A (H1) PCR Not detected, Influ A (H1N1/09) PCR Not detected, Influenza A (H3) PCR Not detected, Influenza Type A (PCR) Not detected, Influenza Type B (PCR) Not detected, M. pneumoniae (PCR) Not detected, Parainfluenza 1 (PCR) Not detected, Parainfluenza 2 (PCR) Not detected, Parainfluenza 3 (PCR) Not detected, Parainfluenza 4 (PCR) Not detected, RSV (PCR) Not detected, Entero/Rhino (PCR) Not detected 06/13/24 05:13: POC Glucose 211 H 06/13/24 05:29: WBC 11.1, RBC 5.06, Hgb 13.9 L D, Hct 43.1, MCV 85.3, MCH 27.6, MCHC 32.4, RDW 13.6, Plt Count 333, MPV 8.0, Neut % (Auto) 63.7, Lymph % (Auto) 28.4, [place] % (Auto) 6.7, Eos % (Auto) 0.4, Baso % (Auto) 0.8, Neut # (Auto) 7.1, Lymph # (Auto) 3.2, [place] # (Auto) 0.7, Eos # (Auto) 0.0, Baso # (Auto) 0.1, Sodium 132 L, Potassium 4.4, Chloride 105, Carbon Dioxide 19 L, Anion Gap 12.4, BUN 16, Creatinine 1.00, Estimated Creat Clear 117, Estimated GFR 95, Est GFR ( Amer) 115, Glucose 206 H D, Calcium 9.0, Phosphorus 2.8 D, Magnesium 1.9 D, Total Bilirubin 1.1, AST 36 D, ALT 40 D, Alkaline Phosphatase 67, Total Protein 6.7 D, Albumin 4.0 D, Globulin 2.7, Albumin/Globulin Ratio 1.5, Procalcitonin 0.195 06/13/24 06:09: POC Glucose 195 H 06/13/24 07:17: POC Glucose 165 H 06/13/24 08:50: Sodium 134 L, Potassium 4.4, Chloride 108 H, Carbon Dioxide 21 L, Anion Gap 9.4, BUN 15, Creatinine 1.00, Estimated Creat Clear 117, Estimated GFR 95, Est GFR ( Amer) 115, Glucose 152 H D, Calcium 9.2, Phosphorus 3.2, Magnesium 2.0 06/13/24 10:48: POC Glucose 164 H 06/13/24 13:50: Sodium 136, Potassium 4.6, Chloride 104, Carbon Dioxide 21 L, Anion Gap 15.6 H, BUN 13, Creatinine 1.00, Estimated Creat Clear 117, Estimated GFR 95, Est GFR ( Amer) 115, Glucose 246 H D, Calcium 9.4, Phosphorus 3.1, Magnesium 1.7 D I & O for Last 24 hours: Intake & Output 06/10/24 06/11/24 06/12/24 06/13/24 23:59 23:59 23:59 23:59 Intake Total 28.089 / 28.089 307.933 / 307.933 Output Total 0 / 0 Balance 28.089 / 28.089 307.933 / 307.933 Weight 68.691 kg 69.94 kg Constitutional Constitutional: no acute distress and cooperative *Routine HEENT Exam Head: Present normocephalic Eye: Present EOMI and PERRL ENT: Present mucous membranes moist *Routine Neck Exam Neck: Present supple; Absent lymphadenopathy *Routine Respiratory Exam Respiratory: Present CTA bilaterally; Absent rhonchi, wheezes or crackles *Routine Cardiovascular Exam Cardiovascular: Present RRR *Routine Abdominal Exam Abdominal: Present soft, normoactive bowel sounds and tenderness (minimal) *Routine Rectal Exam Patient deferred: visual exam *Routine Exam Patient deferred: penile exam *Routine Extremities Exam Extremities: Absent cyanosis, clubbing or edema *Routine Skin Exam Skin: Present warm; Absent rash *Routine Neurological Exam Neurological: Present alert, oriented X3 and moving all extremities; Absent altered mental status Results Data Completed and Pending Labs on day of discharge: Labs from last 24 hours 06/13/24 06/13/24 06/13/24 13:50 10:48 08:50 WBC RBC Hgb Hct MCV MCH MCHC RDW Plt Count MPV Neut % (Auto) Lymph % (Auto) [place] % (Auto) Eos % (Auto) Baso % (Auto) Neut # (Auto) Lymph # (Auto) [place] # (Auto) Eos # (Auto) Baso # (Auto) VBG pH VBG pCO2 VBG pO2 VBG HCO3 VBG Total CO2 VBG O2 Saturation VBG Base Excess VBG Lactic Acid Sodium 136 134 L Potassium 4.6 4.4 Chloride 104 108 H Carbon Dioxide 21 L 21 L Anion Gap 15.6 H 9.4 BUN 13 15 Creatinine 1.00 1.00 Estimated Creat Clear 117 117 Estimated GFR 95 95 Est GFR ( Amer) 115 115 Glucose 246 H D 152 H D POC Glucose 164 H Hemoglobin A1c Lactate Calcium 9.4 9.2 Phosphorus 3.1 3.2 Magnesium 1.7 D 2.0 Total Bilirubin AST ALT Alkaline Phosphatase Total Protein Albumin Globulin Albumin/Globulin Ratio Lipase Procalcitonin Urine Color Urine Appearance Urine pH Ur Specific [place] Urine Protein Urine Glucose (UA) Urine Ketones Urine Blood Urine Nitrate Urine Bilirubin Urine Urobilinogen Ur Leukocyte Esterase Urine WBC Ur Squamous Epith Cells Urine Bacteria Acetone Level Chlamy pneumoniae PCR Adenovirus (PCR) B. pertussis DNA (PCR) Coronavirus OC43 (PCR) Coronavirus HKU1 (PCR) Coronavirus 229E (PCR) SARS-CoV-2 (PCR) Coronavirus NL63 (PCR) Hepatitis C Antibody HIV Ag/Ab Combo Qual Human Metapneumovir PCR Influenza A (H1) PCR Influ A (H1N1/) PCR Influenza A (H3) PCR Influenza Type A (PCR) Influenza Type B (PCR) M. pneumoniae (PCR) Parainfluenza 1 (PCR) Parainfluenza 2 (PCR) Parainfluenza 3 (PCR) Parainfluenza 4 (PCR) RSV (PCR) Entero/Rhino (PCR) 06/13/24 06/13/24 06/13/24 07:17 06:09 05:29 WBC 11.1 RBC 5.06 Hgb 13.9 L D Hct 43.1 MCV 85.3 MCH 27.6 MCHC 32.4 RDW 13.6 Plt Count 333 MPV 8.0 Neut % (Auto) 63.7 Lymph % (Auto) 28.4 [place] % (Auto) 6.7 Eos % (Auto) 0.4 Baso % (Auto) 0.8 Neut # (Auto) 7.1 Lymph # (Auto) 3.2 [place] # (Auto) 0.7 Eos # (Auto) 0.0 Baso # (Auto) 0.1 VBG pH VBG pCO2 VBG pO2 VBG HCO3 VBG Total CO2 VBG O2 Saturation VBG Base Excess VBG Lactic Acid Sodium 132 L Potassium 4.4 Chloride 105 Carbon Dioxide 19 L Anion Gap 12.4 BUN 16 Creatinine 1.00 Estimated Creat Clear 117 Estimated GFR 95 Est GFR ( Amer) 115 Glucose 206 H D POC Glucose 165 H 195 H Hemoglobin A1c Lactate Calcium 9.0 Phosphorus 2.8 D Magnesium 1.9 D Total Bilirubin 1.1 AST 36 D ALT 40 D Alkaline Phosphatase 67 Total Protein 6.7 D Albumin 4.0 D Globulin 2.7 Albumin/Globulin Ratio 1.5 Lipase Procalcitonin 0.195 Urine Color Urine Appearance Urine pH Ur Specific [place] Urine Protein Urine Glucose (UA) Urine Ketones Urine Blood Urine Nitrate Urine Bilirubin Urine Urobilinogen Ur Leukocyte Esterase Urine WBC Ur Squamous Epith Cells Urine Bacteria Acetone Level Chlamy pneumoniae PCR Adenovirus (PCR) B. pertussis DNA (PCR) Coronavirus OC43 (PCR) Coronavirus HKU1 (PCR) Coronavirus 229E (PCR) SARS-CoV-2 (PCR) Coronavirus NL63 (PCR) Hepatitis C Antibody HIV Ag/Ab Combo Qual Human Metapneumovir PCR Influenza A (H1) PCR Influ A (H1N1) PCR Influenza A (H3) PCR Influenza Type A (PCR) Influenza Type B (PCR) M. pneumoniae (PCR) Parainfluenza 1 (PCR) Parainfluenza 2 (PCR) Parainfluenza 3 (PCR) Parainfluenza 4 (PCR) RSV (PCR) Entero/Rhino (PCR) 06/13/24 06/13/24 06/13/24 05:13 05:10 04:00 WBC RBC Hgb Hct MCV MCH MCHC RDW Plt Count MPV Neut % (Auto) Lymph % (Auto) [place] % (Auto) Eos % (Auto) Baso % (Auto) Neut # (Auto) Lymph # (Auto) [place] # (Auto) Eos # (Auto) Baso # (Auto) VBG pH VBG pCO2 VBG pO2 VBG HCO3 VBG Total CO2 VBG O2 Saturation VBG Base Excess VBG Lactic Acid Sodium Potassium Chloride Carbon Dioxide Anion Gap BUN Creatinine Estimated Creat Clear Estimated GFR Est GFR ( Amer) Glucose POC Glucose 211 H 314 H* Hemoglobin A1c Lactate Calcium Phosphorus Magnesium Total Bilirubin AST ALT Alkaline Phosphatase Total Protein Albumin Globulin Albumin/Globulin Ratio Lipase Procalcitonin Urine Color Urine Appearance Urine pH Ur Specific [place] Urine Protein Urine Glucose (UA) Urine Ketones Urine Blood Urine Nitrate Urine Bilirubin Urine Urobilinogen Ur Leukocyte Esterase Urine WBC Ur Squamous Epith Cells Urine Bacteria Acetone Level Chlamy pneumoniae PCR Not detected Adenovirus (PCR) Not detected B. pertussis DNA (PCR) Not detected Coronavirus OC43 (PCR) Not detected Coronavirus HKU1 (PCR) Not detected Coronavirus 229E (PCR) Not detected SARS-CoV-2 (PCR) Not detected Coronavirus NL63 (PCR) Not detected Hepatitis C Antibody HIV Ag/Ab Combo Qual Human Metapneumovir PCR Not detected Influenza A (H1) PCR Not detected Influ A () PCR Not detected Influenza A (H3) PCR Not detected Influenza Type A (PCR) Not detected Influenza Type B (PCR) Not detected M. pneumoniae (PCR) Not detected Parainfluenza 1 (PCR) Not detected Parainfluenza 2 (PCR) Not detected Parainfluenza 3 (PCR) Not detected Parainfluenza 4 (PCR) Not detected RSV (PCR) Not detected Entero/Rhino (PCR) Not detected 06/13/24 06/13/24 06/13/24 03:02 02:50 01:30 WBC RBC Hgb Hct MCV MCH MCHC RDW Plt Count MPV Neut % (Auto) Lymph % (Auto) [place] % (Auto) Eos % (Auto) Baso % (Auto) Neut # (Auto) Lymph # (Auto) [place] # (Auto) Eos # (Auto) Baso # (Auto) VBG pH VBG pCO2 VBG pO2 VBG HCO3 VBG Total CO2 VBG O2 Saturation VBG Base Excess VBG Lactic Acid Sodium 133 L Potassium 4.7 Chloride 101 Carbon Dioxide 19 L Anion Gap 17.7 H BUN 16 Creatinine 1.00 Estimated Creat Clear 114 Estimated GFR 95 Est GFR ( Amer) 115 Glucose 295 H D POC Glucose 282 H Hemoglobin A1c Lactate Calcium 9.1 Phosphorus 4.7 H Magnesium 1.7 D Total Bilirubin AST ALT Alkaline Phosphatase Total Protein Albumin Globulin Albumin/Globulin Ratio Lipase Procalcitonin Urine Color Yellow Urine Appearance Clear Urine pH 6.0 Ur Specific [place] >= 1.030 Urine Protein Negative Urine Glucose (UA) 2+ Urine Ketones 3+ Urine Blood Negative Urine Nitrate Negative Urine Bilirubin Negative Urine Urobilinogen 0.2 Ur Leukocyte Esterase Negative Urine WBC None Ur Squamous Epith Cells Occasional Urine Bacteria Trace Acetone Level Chlamy pneumoniae PCR Adenovirus (PCR) B. pertussis DNA (PCR) Coronavirus OC43 (PCR) Coronavirus HKU1 (PCR) Coronavirus 229E (PCR) SARS-CoV-2 (PCR) Coronavirus NL63 (PCR) Hepatitis C Antibody HIV Ag/Ab Combo Qual Human Metapneumovir PCR Influenza A (H1) PCR Influ A (H1N1/09) PCR Influenza A (H3) PCR Influenza Type A (PCR) Influenza Type B (PCR) M. pneumoniae (PCR) Parainfluenza 1 (PCR) Parainfluenza 2 (PCR) Parainfluenza 3 (PCR) Parainfluenza 4 (PCR) RSV (PCR) Entero/Rhino (PCR) 06/13/24 06/13/24 06/12/24 01:01 00:06 23:05 WBC RBC Hgb Hct MCV MCH MCHC RDW Plt Count MPV Neut % (Auto) Lymph % (Auto) [place] % (Auto) Eos % (Auto) Baso % (Auto) Neut # (Auto) Lymph # (Auto) [place] # (Auto) Eos # (Auto) Baso # (Auto) VBG pH VBG pCO2 VBG pO2 VBG HCO3 VBG Total CO2 VBG O2 Saturation VBG Base Excess VBG Lactic Acid Sodium Potassium Chloride Carbon Dioxide Anion Gap BUN Creatinine Estimated Creat Clear Estimated GFR Est GFR ( Amer) Glucose POC Glucose 265 H 167 H 163 H Hemoglobin A1c Lactate Calcium Phosphorus Magnesium Total Bilirubin AST ALT Alkaline Phosphatase Total Protein Albumin Globulin Albumin/Globulin Ratio Lipase Procalcitonin Urine Color Urine Appearance Urine pH Ur Specific [place] Urine Protein Urine Glucose (UA) Urine Ketones Urine Blood Urine Nitrate Urine Bilirubin Urine Urobilinogen Ur Leukocyte Esterase Urine WBC Ur Squamous Epith Cells Urine Bacteria Acetone Level Chlamy pneumoniae PCR Adenovirus (PCR) B. pertussis DNA (PCR) Coronavirus OC43 (PCR) Coronavirus HKU1 (PCR) Coronavirus 229E (PCR) SARS-CoV-2 (PCR) Coronavirus NL63 (PCR) Hepatitis C Antibody HIV Ag/Ab Combo Qual Human Metapneumovir PCR Influenza A (H1) PCR Influ A (H1N1/09) PCR Influenza A (H3) PCR Influenza Type A (PCR) Influenza Type B (PCR) M. pneumoniae (PCR) Parainfluenza 1 (PCR) Parainfluenza 2 (PCR) Parainfluenza 3 (PCR) Parainfluenza 4 (PCR) RSV (PCR) Entero/Rhino (PCR) 06/12/24 06/12/24 06/12/24 22:13 21:02 20:34 WBC RBC Hgb Hct MCV MCH MCHC RDW Plt Count MPV Neut % (Auto) Lymph % (Auto) [place] % (Auto) Eos % (Auto) Baso % (Auto) Neut # (Auto) Lymph # (Auto) [place] # (Auto) Eos # (Auto) Baso # (Auto) VBG pH VBG pCO2 VBG pO2 VBG HCO3 VBG Total CO2 VBG O2 Saturation VBG Base Excess VBG Lactic Acid Sodium 131 L Potassium 4.4 Chloride 103 Carbon Dioxide 18 L Anion Gap 14.4 BUN 18 Creatinine 0.90 Estimated Creat Clear 127 Estimated GFR 108 Est GFR ( Amer) 130 D Glucose 103 H D POC Glucose 131 H 95 Hemoglobin A1c Lactate 1.2 Calcium 9.9 Phosphorus 3.8 Magnesium 2.1 Total Bilirubin AST ALT Alkaline Phosphatase Total Protein Albumin Globulin Albumin/Globulin Ratio Lipase Procalcitonin Urine Color Urine Appearance Urine pH Ur Specific [place] Urine Protein Urine Glucose (UA) Urine Ketones Urine Blood Urine Nitrate Urine Bilirubin Urine Urobilinogen Ur Leukocyte Esterase Urine WBC Ur Squamous Epith Cells Urine Bacteria Acetone Level Chlamy pneumoniae PCR Adenovirus (PCR) B. pertussis DNA (PCR) Coronavirus OC43 (PCR) Coronavirus HKU1 (PCR) Coronavirus 229E (PCR) SARS-CoV-2 (PCR) Coronavirus NL63 (PCR) Hepatitis C Antibody HIV Ag/Ab Combo Qual Human Metapneumovir PCR Influenza A (H1) PCR Influ A (H1N1/09) PCR Influenza A (H3) PCR Influenza Type A (PCR) Influenza Type B (PCR) M. pneumoniae (PCR) Parainfluenza 1 (PCR) Parainfluenza 2 (PCR) Parainfluenza 3 (PCR) Parainfluenza 4 (PCR) RSV (PCR) Entero/Rhino (PCR) 06/12/24 06/12/24 06/12/24 20:05 19:22 17:13 WBC RBC Hgb Hct MCV MCH MCHC RDW Plt Count MPV Neut % (Auto) Lymph % (Auto) [place] % (Auto) Eos % (Auto) Baso % (Auto) Neut # (Auto) Lymph # (Auto) [place] # (Auto) Eos # (Auto) Baso # (Auto) VBG pH VBG pCO2 VBG pO2 VBG HCO3 VBG Total CO2 VBG O2 Saturation VBG Base Excess VBG Lactic Acid Sodium 131 L Potassium 5.3 H Chloride 98 Carbon Dioxide 13 L Anion Gap 25.3 H BUN 20 Creatinine 1.10 Estimated Creat Clear 115 Estimated GFR 85 Est GFR ( Amer) 103 Glucose 304 H D POC Glucose 93 103 Hemoglobin A1c Lactate Calcium 10.4 H Phosphorus 4.6 H Magnesium 2.3 Total Bilirubin AST ALT Alkaline Phosphatase Total Protein Albumin Globulin Albumin/Globulin Ratio Lipase Procalcitonin Urine Color Urine Appearance Urine pH Ur Specific [place] Urine Protein Urine Glucose (UA) Urine Ketones Urine Blood Urine Nitrate Urine Bilirubin Urine Urobilinogen Ur Leukocyte Esterase Urine WBC Ur Squamous Epith Cells Urine Bacteria Acetone Level Chlamy pneumoniae PCR Adenovirus (PCR) B. pertussis DNA (PCR) Coronavirus OC43 (PCR) Coronavirus HKU1 (PCR) Coronavirus 229E (PCR) SARS-CoV-2 (PCR) Coronavirus NL63 (PCR) Hepatitis C Antibody HIV Ag/Ab Combo Qual Human Metapneumovir PCR Influenza A (H1) PCR Influ A (H1N1/09) PCR Influenza A (H3) PCR Influenza Type A (PCR) Influenza Type B (PCR) M. pneumoniae (PCR) Parainfluenza 1 (PCR) Parainfluenza 2 (PCR) Parainfluenza 3 (PCR) Parainfluenza 4 (PCR) RSV (PCR) Entero/Rhino (PCR) 06/12/24 06/12/24 15:27 14:48 WBC 12.4 RBC 6.06 Hgb 16.7 Hct 54.4 H MCV 89.8 MCH 27.6 MCHC 30.8 L RDW 13.1 Plt Count 366 MPV 8.7 Neut % (Auto) 81.0 H Lymph % (Auto) 15.9 [place] % (Auto) 2.3 Eos % (Auto) 0.1 Baso % (Auto) 0.7 Neut # (Auto) 10.0 H Lymph # (Auto) 2.0 [place] # (Auto) 0.3 Eos # (Auto) 0.0 Baso # (Auto) 0.1 VBG pH 7.13 L VBG pCO2 41.7 VBG pO2 37.5 VBG HCO3 13.7 L VBG Total CO2 15.0 L VBG O2 Saturation 58.7 VBG Base Excess -15.4 L VBG Lactic Acid 3.9 H Sodium 129 L Potassium 5.7 H Chloride 95 L Carbon Dioxide 9 L* Anion Gap 30.7 H BUN 21 H Creatinine 1.20 Estimated Creat Clear 106 Estimated GFR 77 Est GFR ( Amer) 93 Glucose 573 H* POC Glucose Hemoglobin A1c 9.7 H Lactate Calcium 10.6 H Phosphorus 5.9 H Magnesium 2.1 Total Bilirubin 1.8 H AST 62 H ALT 58 Alkaline Phosphatase 136 H Total Protein 9.7 H Albumin 5.6 H Globulin 4.1 H Albumin/Globulin Ratio 1.4 Lipase 120 Procalcitonin Urine Color Urine Appearance Urine pH Ur Specific [place] Urine Protein Urine Glucose (UA) Urine Ketones Urine Blood Urine Nitrate Urine Bilirubin Urine Urobilinogen Ur Leukocyte Esterase Urine WBC Ur Squamous Epith Cells Urine Bacteria Acetone Level Small Chlamy pneumoniae PCR Adenovirus (PCR) B. pertussis DNA (PCR) Coronavirus OC43 (PCR) Coronavirus HKU1 (PCR) Coronavirus 229E (PCR) SARS-CoV-2 (PCR) Coronavirus NL63 (PCR) Hepatitis C Antibody Non reactive HIV Ag/Ab Combo Qual Negative Human Metapneumovir PCR Influenza A (H1) PCR Influ A (H1N1/) PCR Influenza A (H3) PCR Influenza Type A (PCR) Influenza Type B (PCR) M. pneumoniae (PCR) Parainfluenza 1 (PCR) Parainfluenza 2 (PCR) Parainfluenza 3 (PCR) Parainfluenza 4 (PCR) RSV (PCR) Entero/Rhino (PCR) DS: Diagnosis Discharge Diagnosis (1) DKA (diabetic ketoacidosis): Status: Acute Code(s): E11.10 - Type 2 diabetes mellitus with ketoacidosis without coma (2) Nausea and vomiting: Status: Acute Code(s): R11.2 - Nausea with vomiting, unspecified (3) High anion gap metabolic acidosis: Status: Acute Code(s): E87.29 - Other acidosis (4) Type 1 diabetes: Status: Chronic Code(s): E10.9 - Type 1 diabetes mellitus without complications Qualifiers: Diabetes mellitus complication status: with hyperglycemia Qualified Code(s): E10.65 - Type 1 diabetes mellitus with hyperglycemia Meds Home Medications and Allergies Home Medications ?Medication ?Instructions ?Recorded ?Confirmed ?Type insulin lispro 100 unit/mL 0 unit SQ DIRECTED 08/13/19 06/12/24 History subcutaneous pen insulin degludec 100 unit/mL (3 38 unit (0.38 mL) SQ HS #15 mL 06/13/24 Rx mL) subcutaneous pen New Prescriptions to Start Prescriptions: insulin degludec Deshaun Todd Allergies Allergy/AdvReac Type Severity Reaction Status Date / Time No Known Allergies Allergy Verified 06/12/24 13:42 Discharge Plan Disposition Patient Disposition: Home, Self-Care Condition: Fair Follow up Plan Follow up with: Keiko Munroe PA [Primary Care Provider] - 06/20/24 1:00 pm Prescriptions/Medication Reconciliation: New insulin degludec 100 unit/mL (3 mL) Insulin Pen 38 unit SQ HS Qty: 15 0RF Continued insulin lispro 100 unit/mL insulin pen 0 unit SQ DIRECTED Rx Instructions: PER SLIDING SCALE Discontinued Tresiba FlexTouch U-100 100 unit/mL (3 mL) insulin pen 30 unit SQ DAILY Rx Instructions: FOR INSULIN PUMP MALFUNCTION Problem Reconciliation Problems Reviewed?: Yes Patient Discharge Instructions ACTIVITY: Continue current activity DIET: continue same diet and advance to your usual diet Print Language: French Providers Primary Care Provider: Keiko Munroe Admit Provider: Deshaun Todd Attending Provider: Deshaun Todd
[2024-06-13 15:23] LABS: POC Glucose,Bedside 257 (70-110)
--- NOTE | 2024-06-14 10:56 | SW/DCPLANNER ---
Spoke with patient on the phone. Patient stated that he is doing alot better. Patient stated that he is aware of his upcoming appoointments and was able to get his new medication filled at the clinic pharmacy. Patient stated that he has no concerns or questions at this time. Leo Erwin
== END 2024-06-13 16:01 | disposition home or self-care (01) ==
LOC: ER 16:53 → ICU 18:41 → 2ND 06-13 11:44
PROVIDERS: Emergency Medicine; Internal Medicine; Admitting Provider Internal Medicine Adolescent Medicine; Emergency Provider Emergency Medicine; PCP Physician Assistant; Visit Provider Internal Medicine Adolescent Medicine
DX: E10.10 Type 1 diabetes mellitus with ketoacidosis without coma (principal); Z79.4 Long term (current) use of insulin; K52.89 Other specified noninfective gastroenteritis and colitis
CPT/HCPCS: 36415; 80048; 80053; 81001; 82009; 82803; 82962; 83036; 83605; 83690; 83735; 84100; 84145; 85025; 86803; 87389; 87633; 99291; G0378; J2405; J7042; J7120

== ENCOUNTER 2025-01-17 10:35 | Outpatient (CLI) | payer MEDICAID, SELFPAY ==
[2025-01-17 14:33] LABS: Coronavirus 19, PCR Not Detected (NotDetected); Influenza A, PCR Not Detected (NotDetected); Influenza B, PCR Not Detected (NotDetected)
--- OUTSIDE RECORDS SUMMARY | 2025-01-18 14:41 | XMS_ITS | Encounter Summary ---
Author Organization [facility] Address [address] [place] [address] Care Team Providers Care Concrete Stone Fabricator Name Role Phone Bryson Castillo MD Primary Care Provider [phone] Keiko Munroe Primary Care Provider [phone] Reason for Visit * Reason Comments Med Refill Encounter Details Date Type Department Care Team (Late st Contact Info) Description 04/23/2021 Refill [facility] Diabetes Education [address] [place] [address] Bessie Bell APRN, PhD [address] [address] Social History Tobacco Use Types Packs/Day Years Used Date Smoking Tobacco: Passive Smo ke Exposure - Never Smoker Sex and Gender Information Value Date Recorded Sex Assigned at Not on file Legal Sex Male 8:04 PM EDT Gender Identity Not on file Sexual Orientation Not on file documented as of this encounter Plan of Treatment Not on file documented as of this encounter Visit Diagnoses Not on filedocumented in this encounter Care Teams Concrete Stone Fabricator Relationship Specialty Start Date End Date Bryson Castillo MD [address] [place], [place] [id number] PCP - General 11/08/20 05/13/21 Keiko Munroe PA [address] [place] [address] PCP - General 05/14/21 documented as of this encounter
--- OUTSIDE RECORDS SUMMARY | 2025-01-18 14:41 | XMS_ITS | Encounter Summary ---
Author Organization [facility] Address [address] [place] [address] Care Team Providers Care Container Repairer Name Role Phone Bryson Castillo MD Primary Care Provider [phone] Keiko Munroe Primary Care Provider [phone] Reason for Visit * Reason Comments Med Refill Encounter Details Date Type Department Care Team (Late st Contact Info) Description 04/06/2021 Refill [facility] Diabetes Education [address] [place] [address] Bessie Bell APRN, PhD [address] [address] Type 1 diabetes mellitus without complication (CMS/HCC) (Primary Dx) Social History Tobacco Use Types Packs/Day Years [...] documented as of this encounter Visit Diagnoses Diagnosis Type 1 diabetes mellitus without complication- Primary Type I (juvenile type) diabetes mellitus without mention of complication, not stated as uncontrolled documented in this encounter Care Teams Container Repairer Relationship Specialty Start Date End Date Bryson Castillo MD [address] [place] [address] PCP - General 11/08/20 05/13/21 Keiko Munroe PA [address] [place] [address] PCP - General 05/14/21 documented as of this encounter
--- OUTSIDE RECORDS SUMMARY | 2025-01-18 14:42 | XMS_ITS | Encounter Summary ---
Author Organization [facility] Address [address] [place] [address] Care Team Providers Care Shopping Investigator Name Role Phone LudwigKeiko ROBERT Primary Care Provider [phone] Reason for Visit * Reason Comments Med Refill Encounter Details Date Type Department Care Team (Late st Contact Info) Description 01/12/20[facility] [address] [place] [address] Berenice Wheeler, KAIAKO KURA KAUPAPA MAORI [address] [place] [address] Type 1 diabetes mellitus with hyperglycemia (CMS/HCC) Social History Tobacco Use Types Packs/Day Years Used Date Smoking Tobacco: Never Passive Smoke Exposure: Yes Smokeless Tobacco: Never Alcohol Use Standard Drinks/Week Comments Never 0 (1 standard drink = 0.6 oz pur e alcohol) PHQ-2 Answer Date Recorded Patient Health Questionnaire-2 Score 0 03/16/2024 Sex and Gender Information Value Date Recorded Sex Assigned at Not on file Legal Sex Male 8:04 PM EDT Gender Identity Not on file Sexual Orientation Not on file documented as of this encounter Miscellaneous Notes * Telephone Encounter - Sarah Grider PharmD - 01/12/2025 1:24 PM EDT Refill request does not meet protocol. Sending to clinic for review. Additional info: Medication not on protocol. Insulin lispro directions have changed per current medlist, please review. documented in this encounter Plan of Treatment Not on file documented as of this encounter Visit Diagnoses Diagnosis Type 1 diabetes mellitus with hyperglycemia (CMS/HCC) documented in this encounter Additional Health Concerns Assessment Noted Time A Body Mass Index follow-up plan has been documented for the patient 06/15/2024 4:12 PM EST documented as of this encounter Care Teams Shopping Investigator Relationship Specialty Start Date End Date Keiko Munroe PA [address] [place] [address] PCP - General 05/14/21 documented as of this encounter
--- OUTSIDE RECORDS SUMMARY | 2025-01-18 14:42 | XMS_ITS | Encounter Summary ---
Author Organization [facility] Address [address] [place] [address] Care Team Providers Care Sql Engineer Name Role Phone LudwigKeiko ROBERT Primary Care Provider [phone] Reason for Visit * Reason Comments Med Refill Encounter Details Date Type Department Care Team (Late st Contact Info) Description 11/01/2022 Refill [facility] Diabetes Education [address] [place] [address] Bessie Bell APRN, PhD [address] [address] Type 1 diabetes mellitus without complication (CMS/HCC) Social History Tobacco Use Types Packs/Day Years Used Date Smoking Tobacco: Passive Smo ke Exposure - Never Smoker Smokeless Tobacco: Never Alcohol Use Standard Drinks/Week Comments Never 0 (1 standard drink = 0.6 oz pur e alcohol) Sex and Gender Information Value Date Recorded Sex Assigned at Not on file Legal Sex Male 8:04 PM EDT Gender Identity Not on file Sexual Orientation Not on file documented as of this encounter Miscellaneous Notes * Telephone Encounter - Mayela Scott - 11/02/2022 8:42 AM EDT Per protocol, 1 medication(s), pen needles, has been approved for 90 day supply with 0 refill(s) [facility] documented in this encounter Plan of Treatment Not on file documented as of this encounter Visit Diagnoses Diagnosis Type 1 diabetes mellitus without complication Type I (juvenile type) diabetes mellitus without mention of complication, not stated as uncontrolled documented in this encounter Care Teams Sql Engineer Relationship Specialty Start Date End Date Keiko Munroe PA [address] [place] [address] PCP - General 05/14/21 documented as of this encounter
--- OUTSIDE RECORDS SUMMARY | 2025-01-18 14:42 | XMS_ITS | Data Portability ---
Author Organization [facility] [employer] [facility] [employer] [facility] Address [address] [place] [address] Assessment No assessment recorded. Plan of Treatment Reminders Order Date Submit Date Provider Last Modified By Organization Details Last Modified Time Details Appointments None recorde d. Lab HbA1c (hemogl obin A1c), blood 024 06/20/[address], [facility] [place], [address], 4 13:22:59 glucose , fingers tick, blood 024 06/20/[address], [address] [place], [address], 4 13:22:59 microal bumin/c reatini ne, mass ratio, urine 024 06/20/[address], [address] [place], [address], 4 13:22:59 Referral None recorde d. Procedures None recorde d. Surgeries None recorde d. Imaging None recorde d. Medication Orders None recorde d. Patient TargetsNo targets recorded. Patient InstructionsNo instructions recorded. Reason for Referral None Reported. Results Created Date Observation Date Name Description Value Unit Range Abnormal Flag Note LastModifiedBy Organization Detail LastModifiedTime 06/20/20 24 06/20/2024 micro album in/cr eatin ine, mass ratio , urine Microalbumin 10 mg/L Not Available [address], [address], 06/20/2024 13:15:04 06/20/20 24 06/20/2024 micro album in/cr eatin ine, mass ratio , urine Creatinine 200 mg/dL Not Available [address], [address], 06/20/2024 13:15:04 06/20/20 24 06/20/2024 micro album in/cr eatin ine, mass ratio , urine Ratio <30 mg/g Not Available [address], [address], 06/20/2024 13:15:04 06/20/20 24 06/20/2024 HbA1c (hemo globi n A1c), blood HbA1c 9.9 % Not Available [address], [address], 06/20/2024 13:12:05 06/20/20 24 06/20/2024 gluco se, finge rstic k, blood Blood Glucose: mg/dl 204 Not Available [address], [address], 06/20/2024 13:12:12 Result Notes None recorded. Procedures Surgical History Date Name Laterality Status Provider Name and Address Organization Details Recorded Time tonsilectom y/adenoids completed [facility] [employer] 06/20/2024 13:11:19 Imaging Results None recorded. Procedure Notes None recorded. Medical Equipment None Reported. Allergies No known drug allergies Medications Name Sig Start Date Stop Date Status Note LastModified by Organization Details LastModified Time insulin lispro (U-100) 100 unit/mL subcutaneous pen INJECT 1 UNIT PER 4 GRAMS OF CARBS AND NEEDED FOR HYPERGLYCEM IA (MAX DAILY DOSE 100 UNITS) active Not Available Not Available N ot Available BD Ultra-Fine Short Pen Needle 31 gauge x 5/16 USE TO GIVE INSULIN INJECTIONS 6 TIMES A DAY active Not Available Not Available No t Available OneTouch Verio test strips USE DIRECTED TO CHECK BLOOD SUGAR 4 TO 6 TIMES DAILY WHEN CGM NOT IN USE active Not Available Not Available No t Available Tresiba FlexTouch U-100 insulin 100 unit/mL (3 mL) subcutaneous pen INJECT 36 UNITS SUBCUTANEOU SLY ONCE DAILY (FOR INSULIN PUMP MALFUNCTION ) active Not Available Not Available No t Available Dexcom G6 Sensor device active Not Available Not Available Not Available Dexcom G6 Transmitter device active Not Available Not Available Not Available Baqsimi 3 mg/actuation nasal spray USE WITH SEVERE HYPOGLYCEMI A active Not Available Not Available No t Available Vitals Date Recorded Body weight Body mass index (BMI) [Percentile] Per age and sex Body mass index (BMI) Body height Heart rate Oxygen saturation Oxygen saturation in Arterial blood by Pulse oximetry Systolic And Diastolic Provider Name and Address Organization Details Last Updated DateTime 4 76072.2 7 g 83 % 26.7 kg/m2 166.37 cm 62 /min 98 % 98 % 114/67 mm[Hg] Edwina [employer]. 13:07:53 Social History Question Answer Notes LastModified by Organizat ion Details LastModified Time Tobacco Smoking Status Never Smoker Edwina [employer] [facility] [employer] 06/20/2024 13:08:15 Do You Have An Advance Directive? No Information not available 06/20/2024 Is Your Home Air Conditioned? No Information not available 06/20/2024 Do You Wear A Helmet When Biking? Yes Information not available 06/20/2024 Are You Blind Or Do You Have Difficulty Seeing? No Information not available 06/20/2024 What Is Your Level Of Caffeine Consumption? Occasional Information not available 06/20/2024 What Type Of Assistant Director Of Admissions Do You Use? None Information not available 06/20/2024 Have You Been To An Area Known To Be High Risk For COVID-19? No Information not available 06/20/2024 Are You Deaf Or Do You Have Serious Difficulty Hearing? No Information not available 06/20/2024 What Type Of Diet Are You Following? DIABETIC Information not available 06/20/2024 How Many Days Of Moderate To Strenuous Exercise, Like A Brisk Walk, Did You Do In The Last 7 Days? 5 Information not available 06/20/2024 Have There Been Any Changes To Your Family Or Social Situation? No Information no t available 06/20/2024 Are There Any Guns Present In Your Home? No Information not available 06/20/2024 Which Of Your Hands Is Dominant? Right Information not available 06/20/2024 What Is Your Home Situation? Mother Information not available 06/20/2024 Do You Have A Medical Power Of Solderer Barrel Ribs? No Information not available 06/20/2024 What Was The Date Of Your Most Recent Tobacco Screening? 06/20/2024 Information not available 06/20/2024 Do You Have Any Pets? Yes Information not available 06/20/2024 Do You Use Protection During Sex? Always Information not available 06/20/2024 What Is Your Relationship Status? Single Information not available 06/20/2024 Have You Repeated Any Grades? No Information not available 06/20/2024 Do You Use Your Seat Belt Or Car Seat Routinely? Yes Information not available 06/20/2024 Are You Sexually Active? Yes Information not available 06/20/2024 Do You Have Smoke And Carbon Monoxide Detectors In Your Home? Yes Information not available 06/20/2024 Are You Passively Exposed To Smoke? No Information no t available 06/20/2024 Are There Any Smokers In Your House? No Information not available 06/20/2024 Do You Participate In Social Media? Yes Information not available 06/20/2024 Do You Use Sunscreen Routinely? No Information not available 06/20/2024 Has Tobacco Cessation Counseling Been Provided? No Information not available 06/20/2024 Have You Recently Traveled Abroad? No Information not available 06/20/2024 Do You Have Difficulty Walking Or Climbing Stairs? No Information not available 06/20/2024 Are You Currently In School? No Information not available 06/20/2024 Do You Have Any Dietary Restrictions? Yes Information not available 06/20/2024 Sex: Unknown Functional Status Question Answer Note LastModified by Organizat [employer] Details LastModified Time Do you use any illicit or recreational drugs? No Information not available 06/20/2024 Do you or have you ever used any other forms of tobacco or nicotine? No Information not available 06/20/2024 What is your level of alcohol consumption? None Information not available 06/20/2024 Are you currently employed? No Information not available 06/20/2024 Do you have transportation difficulties? No Information not available 06/20/2024 Are you able to walk? YESWOREST Information not available 06/20/2024 Do you have difficulty doing errands alone? No Information not available 06/20/2024 Are you able to care for yourself? Yes Information not available 06/20/2024 Do you have difficulty dressing or bathing? No Information not available 06/20/2024 What is your exercise level? Moderate Information not available 06/20/2024 Mental Status Question Answer Note LastModified by Organizat [employer] Details LastModified Time Do you feel stressed (tense, restless, nervous, or anxious, or unable to sleep at night)? [id number] Information not available 06/20/2024 Do you have difficulty concentrating, remembering or making decisions? No Information no t available 06/20/2024 Are you or have you been involved with bullying? No Information not available 06/20/2024 Family History Relationship Description Onset Age of this Age Resolved Age Notes LastModified by Organization Details LastModified Time Father No current problems or disability Not available 06/20 13:10:22 Mother No current problems or disability Not available 06/20 13:10:22 Medical History Condition Response Coronary Artery Disease N Other N Gout N Blood Diseases N Kidney Stones N Hyperthyroidism N Blood Transfusion N Breast Cancer N Emergency room visit since last appointm ent. N Lung Disease N COPD N Depression N Hypothyroidism N Dermatologic Disorders N Defects or Inherited Disease N Developmental or Behavioral Disorders N Breast Problem N Difficulty Swallowing N Anesthesia Complications N History of STI N Anxiety Disorder N Meniere's disease N Autoimmune disease N Muscle, Joint, or Bone Problems N Vision or Eye Problems N Arthritis N Infertility N Polyps N Mental Disorder N Congenital Anomalies N Acid Reflux (GERD) N Cancer N Stroke N Neurologic/Epilepsy N Endometriosis N Bladder or Kidney Problems N High Cholesterol N Liver Disease N Organ Transplant N Psychiatric/Mental Health Condition N Dialysis N Headaches N Fibromyalgia N Schizophrenia N Kidney Disease N Allergies/Hayfever N Heart Problems N Ear or Hearing Problems N Hospitalizations N Learning Disorder N Artificial Joints N Thyroid Problems N GI Problems N Acne N ADD/ADHD N Eating Disorder N Anemia N Constipation N Mental Illness N Diabetes Y Ovarian Cancer N Bedwetting N Hepatitis/Liver Disease N Tuberculosis N Eczema N Abuse/Domestic Violence N Diverticulitis N Asthma N Trauma/Violence N Substance Abuse N Reflux/GERD N Depression/ depression N Hepatitis N Heart Disease N Pulmonary Embolism N Tourette Syndrome N Chronic Ear Infections N Pre-Eclampsia N Hypertension N Chicken Pox N Autism Spectrum Disorder (ASD) N Osteoporosis N Thrombophilias N Immunizations Vaccine Type Date Status Note Provider Nam e and Address Organization Details Recorded Time Hib-Hep B 5 completed Edwina Vice null, [employer]. 06/20/2024 13:08:26 Hib-Hep B 5 completed Edwina Vice null, [employer]. 06/20/2024 13:08:26 HPV9 9 completed Edwina Vice null, [employer]. 06/20/2024 13:08:26 HPV9 8 completed Edwina Vice null, [employer]. 06/20/2024 13:08:26 IPV 5 completed Edwina Vice null, [employer]. 06/20/2024 13:08:26 IPV 5 completed Edwina Vice null, [employer] 06/20/2024 13:08:26 IPV 9 completed Edwina Vice null, [employer] 06/20/2024 13:08:26 IPV 5 completed Edwina Vice null, [employer] 06/20/2024 13:08:26 MMR 9 completed Edwina Vice null, [employer] 06/20/2024 13:08:26 MMR 6 completed Edwina Vice null, [employer] 06/20/2024 13:08:26 Tdap 6 completed Edwina Vice null, [employer] 06/20/2024 13:08:26 varicella 2 completed Edwina Vice null, [employer] 06/20/2024 13:08:26 varicella 5 completed Edwina Vice null, [employer] 06/20/2024 13:08:26 Influenza, split virus, trivalent, PF 3 completed Edwina Vice null, [employer] 06/20/2024 13:08:26 Hep B, adolescent or pediatric 4 completed Edwina Vice null, [employer] 06/20/2024 13:08:26 Hep A, ped/adol, 2 dose 9 completed Edwina Vice null, [employer] 06/20/2024 13:08:26 Hep A, ped/adol, 2 dose 8 completed Edwina Vice null, [employer] 06/20/2024 13:08:26 Hib (PRP-OMP) 5 completed Edwina Vice null, [employer] 06/20/2024 13:08:26 Meningococcal MCV4O 6 completed Edwina Vice null, [employer] 06/20/2024 13:08:26 meningococcal MCV4P 1 completed Edwina Vice null, [employer] 06/20/2024 13:08:26 DTaP, unspecified formulation 5 completed Edwina Vice null, [employer] 06/20/2024 13:08:26 DTaP, unspecified formulation 5 completed Edwina Vice null, [employer] 06/20/2024 13:08:26 DTaP, unspecified formulation 9 completed Edwina Vice null, [employer] 06/20/2024 13:08:26 DTaP, unspecified formulation 6 completed Edwina Vice null, [employer] 06/20/2024 13:08:26 DTaP, unspecified formulation 5 completed Edwina Vice null, [employer] 06/20/2024 13:08:26 Past Encounters Encounter ID Performer Location Encounter Start Date Encounter Closed Date Diagnosis/Indication Diagnosis SNOMED-CT Code Diagnosis ICD10 Code Diagnosis Note [id number] ROBERT Coelho [address] [place] [address] 06/20/2024 12:47:36 06/20/2024 13:31:26 Uncontrolled type 1 diabetes mellitus 566183714 E10.65 Health Concerns Section Related Observation LastModified by Organization Detai ls LastModified Time None Recorded Concern Status LastModified by Organization Details LastModified Time None Recorded Advance Directives Directive N: Payers Insurance Date Sequence Insurance Name Policy Number Policy Alicea Covered Member ID Alicea Member ID Guarantor Name 07/03/2024 1 [facility] (MEDICAID REPLACEMENT - HMO) Dominic Mohamud [id number] Dominic Mohamud Notes Date Note Type Note Provider Name and Address Organization Details Recorded Time 06/20/2024 text/html Patient [facility]. History of type 1 DM, diagnosed roughly 3 years ago. Got stomach virus last week. Admitted to [facility] with DKA. First episode of DKA. Feeling better. Just still some weakness ROBERT Coelho [address] [place] [address], [phone], [employer] 07/03/2024 16:37:40
--- OUTSIDE RECORDS SUMMARY | 2025-01-18 14:42 | XMS_ITS | Encounter Summary ---
Author Organization [facility] Address [address] [place] [address] Care Team Providers Care Parachute Harness Rigger Name Role Phone LudwigKeiko ROBERT Primary Care Provider Reason for Visit * Reason Comments Med Refill Encounter Details Date Type Department Care Team (Late st Contact Info) Description 11/16/2023 Refill [facility] Diabetes Education [address] [place] [address] Bessie Bell APRN, PhD [address] [address] Social History Tobacco Use Types [...] encounter Miscellaneous Notes * Telephone Encounter - Estiven Rivera, PharmD - 11/17/2023 8:46 AM EDT Per protocol, 1 medication(s), insulin lispro, has been refused due to: Duplicate request documented in this encounter Plan of Treatment Not on file documented as of this encounter Visit Diagnoses Not on filedocumented in this encounter Additional Health Concerns Assessment Noted Time A Body Mass Index follow-up plan has been documented for the patient 02/03/2023 3:34 PM EDT documented as of this encounter Care Teams Parachute Harness Rigger Relationship Specialty Start Date End Date Keiko Munroe PA [address] [place] [address] PCP - General 05/14/21 documented as of this encounter
--- OUTSIDE RECORDS SUMMARY | 2025-01-18 14:42 | XMS_ITS | Clinical Summary ---
Author Organization [facility] Address [address] [place] [address] Care Team Providers Care Information Specialist Name Role Phone LudwigKeiko ROBERT Primary Care Provider [phone] Allergies No known active allergies Medications levocetirizine (Xyzal) 5 MG tablet Take 1 tablet (5 mg) by mouth 1 (one) time each day. 023 Active Lancets (OneTouch Delica Plus [id number]) misc Use to check BG 4-6 times daily. 200 each 023 Active Ketostix strip Use to check for ketones with illness/hypergly cemia (1-2 strips per day). 25 each 023 Active OneTouch Verio test strip Use to check BG 4-6 times daily when cgm not in use 50 each 023 Active Continuous Glucose Transmitter (Dexcom G6 transmitter) misc Use 1 transmitter, change very 3 months. 1 each 1 024 Active B-D ULTRAFINE III SHORT PEN 31G X 8 MM miscIndications: Type 1 diabetes mellitus without complication USE TO GIVE INSULIN INJECTIONS 6 times a day 540 each 3 024 Active glucagon (Baqsimi One Pack) 3 MG/DOSE powder Nasal Powder Use with severe hypoglycemia 2 each 5 024 Active glucose (Trueplus Glucose) 4 g chewable tablet Chew 4 tablets (16 g) if needed for low blood sugar. 50 tablet 12 024 Active Alcohol Swabs pads Instructed to wipe skin prior to injections, up to 6 times per/day 540 each 3 024 Active insulin degludec (Tresiba FlexTouch) 100 UNIT/ML injection penIndications:T ype 1 diabetes mellitus with hyperglycemia (CMS/HCC) Please inject 38 units daily 15 mL 2 024 Active Continuous Glucose Sensor (Dexcom G6 Sensor) misc APPLY 1 SENSOR AND CHANGE EVERY 10 DAYS DIRECTED 3 each 1 025 Active insulin lispro (Admelog, HumaLOG) 100 UNIT/ML injection penIndications:T ype 1 diabetes mellitus with hyperglycemia (CMS/HCC) INJECT 1 UNIT PER 5 GRAMS OF CARBS AND NEEDED FOR HYPERGLYCEMIA (MAX DAILY DOSE 100 UNITS) 30 mL 1 025 Active Continuous Glucose Sensor (Dexcom G6 Sensor) misc Apply 1 sensor and change every 10 days as directed. 3 each 5 024 2024 Discontinued insulin lispro (Admelog, HumaLOG) 100 UNIT/ML injection penIndications:T ype 1 diabetes mellitus with hyperglycemia (CMS/HCC) INJECT 1 UNIT PER 5 GRAMS OF CARBS AND NEEDED FOR HYPERGLYCEMIA. MDD 100 UNITS 30 mL 5 024 2024 Discontinued Active Problems Problem Noted Date Diagnosed Date Hemoglobin A1c greater than 9.0% 02/03/2023 Type 1 diabetes mellitus without complication Hemoglobin A1c 8.0 percent or greater 05/19/2021 Seasonal allergic rhinitis 02/07/2014 Encounters Date Type Department Care Team Description 01/12/2025 Refill [facility] Endocrinology [address] [place] [phone] Berenice Wheeler, GETTER OPERATOR Type 1 diabetes mellitus with hyperglycemia (CMS/HCC) from Last 3 Months Immunizations Immunization Administration Dates Next Due DTaP, Unspecified 10/01/2008, 6,2004,09/26,2004 HPV 9-Valent 08/18/2018,02/02/2018 Hep A, ped/adol, 2 dose 08/18/2018,02/02/2018 Hep B, Adolescent or Pediatric 2004 Hib (PRP-OMP) 2004 Hib / Hep B 06/01/2005,2004 IPV 10/01/2008, 5,2004,07/29 Influenza, seasonal, injectable 04/12/2012 Influenza, seasonal, injecta ble, preservative free 05/23/2013 MMR 10/01/2008,10/08/2005 Meningococcal MCV4O 10/28/2015 Meningococcal MCV4P 07/10/2020 Tdap 10/28/2015 Varicella 12/04/2011,06/01/2005 Family History Medical History Relation Name Comments Diabetes type I Father Relation Name Status Comments Father Social History Tobacco Use Types Packs/Day Years Used Date Smoking Tobacco: Never Passive Smoke Exposure: Yes Smokeless Tobacco: Never Tobacco Cessation:Counseling Given: Not Answered Alcohol Use Standard Drinks/Week Comments Never 0 (1 standard drink = 0.6 oz pur e alcohol) PHQ-2 Answer Date Recorded Patient Health Questionnaire-2 Score 0 03/16/2024 Sex and Gender Information Value Date Recorded Sex Assigned at Not on file Legal Sex Male 8:04 PM EDT Gender Identity Not on file Sexual Orientation Not on file Last Filed Vital Signs Vital Sign Reading Time Taken Comments Blood Pressure 142/95 06/15/2024 4:07 PM EST Pulse 68 06/15/2024 3:09 PM EST Temperature - - Respiratory Rate - - Oxygen Saturation - - Inhaled Oxygen Concentration - - Weight 74 kg (163 lb 2.3 oz) 06/15/2024 3:09 PM EST Height 165.1 cm (5' 5 ) 03/16/2024 2:52 PM EDT Body Mass Index 27.15 03/16/2024 2:52 PM EDT Plan of Treatment Health Maintenance Due Date Last Done Comments [facility]-HIV Screening 2004 [facility]-Hepatitis C Screening 2004 [facility]-/Child/Adol SDOH Screenings 2004 Diabetes: Dental Exam 2014 [facility]- SDOH Screenings 2022 [facility]-Adult SDOH Screenings 2022 [facility]-Pneumococcal Vaccine: Pediatrics (0 to 5 Years) and At-Risk Patients (6 to 49 Years) (1 of 2 - PCV) 2023 [id number]-70 Vaccine ( - season) 2024 [facility]-Diabetes: Hemoglobin A1C 06/15/2024 03/16/2024, 02/03/2023, 02/18/2022, Additional history exists [facility]-Influenza Vaccine (#1) 2025 05/23/2013, [facility]-Depression Screening 03/16/2025 03/16/2024 [facility]-DTaP,Tdap,and Td Vaccines (7 - Td or Tdap) 10/27/2025 10/28/2015, 10/01/2008, 10/08/2005, Additional history exists [facility]-Zoster Vaccines (1 of 2) 2054 12/04/2011, 06/01/2005 [facility]-HIB Vaccines Completed 06/01/2005, 06/2004, 2004 [facility]-Hepatitis B Vaccines Completed 005, 2004, 2004 [facility]-IPV Vaccines Completed 10/01/2008, , 2004, Additional history exists [facility]-Varicella Vaccines Completed 12/04/2011, 2004 HPV Vaccines Completed 08/18/2018, 02/02/2018 [facility]-Hepatitis A Vaccines Completed 08/18/2018, 01/2018 [facility]-Obesity Intervention Completed 024, 03/16/2024, 02/03/2023 [facility]-Rotavirus Vaccines Aged Out No lo nger eligible based on patient's age to complete this topic Procedures Procedure Name Priority Date/Time Associated Diagnosis Comments POCT GLYCOSYLATED HEMOGLOBIN (HGB A1C) Routine 03/16/2024 3:00 PM EDT Type 1 diabetes mellitus without complication (CMS/HCC) from Last 3 Months or Most Recently Relevant to Health Maintenance Results * (ABNORMAL) POCT glycosylated hemoglobin (Hb A1C) (03/16/2024 3:00 PM EDT) POCT Hemoglobin A1C 9.4 <5.7% Non-Diabet ic % [facility] Kit Lot Number [id number] [facility] Kit Expiration Date 11/2025 [facility] Blood Venous blood specimen / Unknown 03/16/2024 3:00 PM EDT Berenice Wheeler GETTER OPERATOR POINT OF CARE TEST ENTER/YANA T ORDERABLES Final Result [facility] [address] [place] [address] from Last 3 Months or Most Recently Relevant to Health Maintenance Insurance [employer] Care Teams Information Specialist Relationship Specialty Start Date End Date Keiko Munroe PA [address] [place] [address] PCP - General 05/14/21
== END 2025-01-17 23:59 | disposition home or self-care (01) ==
LOC: LAB.DROPOF 01-18 14:39
PROVIDERS: PCP Nurse Practitioner Family; Visit Provider Nurse Practitioner Family
DX: J06.9 Acute upper respiratory infection, unspecified (principal)
CPT/HCPCS: 87631